=== PATIENT | male | born 1945 | race Asian ===

== ENCOUNTER 2018-12-07 10:38 | Inpatient (IN) | payer OTHER ==
--- NOTE | 2018-12-07 10:48 | PDOC ---
History of Present Illness - General Chief Complaint: Rectal Bleed Stated Complaint: Rectal Bleed Time Seen by Provider: 12/07/18 10:48 - History of Present Illness Initial Comments: 73 year old male with PMH of HTN, HLD, CAD (s/p stents), colonoscopy 7 years prior, and afib (on Xarelto) presenting with bright red blood per rectum. Stats that he had history of hemorrhoids. This all started this past evening without obvious inciting cause (including trauma, constipation, increased xarelto dosing , etc). Admits to generalized weakness but no syncope, nasuea, vomiting, fevers , abdominal pain, or other pain. 12/07/18 13:59 Past History - Past Medical History Allergies/Adverse Reactions: Allergies Allergy/AdvReac Type Severity Reaction Status Date / Time No Known Allergies Allergy Verified 12/07/18 11:31 Home Medications: Ambulatory Orders Aspirin 81 mg PO DAILY 12/07/18 Atorvastatin Ca [Lipitor] 20 mg PO DAILY 12/07/18 Carvedilol 3.125 mg PO DAILY 12/07/18 Lisinopril 10 mg PO DAILY 12/07/18 Ranitidine HCl [Zantac] 150 mg PO DAILY 12/07/18 Rivaroxaban [Xarelto] 15 mg PO DAILY 12/07/18 Review of Systems - Review of Systems Constitutional: No: Chills, Diaphoresis, Fever, Loss of Appetite HEENTM: No: Eye Pain, Blurred Vision, Tearing Respiratory: No: Cough, Orthopnea, Shortness of Breath, Wheezing Cardiac (ROS): Yes: Irregular Heart Rate, Lightheadedness. No: Chest Pain, Edema, Palpitations ABD/GI: Yes: Rectal Bleeding. No: Nausea, Vomiting : No: Burning, Dysuria, Discharge Musculoskeletal: No: Back Pain, Gout, Joint Pain Integumentary: No: Dryness, Erythema, Flushing Neurological: No: Headache, Numbness, Paresthesia Psychiatric: No: Anxiety, Depression Hematologic/Lymphatic: Yes: Easy Bleeding, Bleeding Diathesis *Physical Exam - Physical Exam General Appearance: Yes: Nourished, Appropriately Dressed, Apparent Distress, Moderate Distress HEENT: positive: EOMI, MARK, Normal ENT Inspection, Normal Voice Neck: positive: Trachea midline, Normal Thyroid, Supple. negative: Tender, Rigid Respiratory/Chest: positive: Lungs Clear, Normal Breath Sounds. negative: Chest Tender, Respiratory Distress, Accessory Muscle Use Cardiovascular: positive: Irregularly Irregular Gastrointestinal/Abdominal: positive: Normal Bowel Sounds, Flat, Soft. negative : Tender Rectal Exam: positive: other (bright red blood per rectum, small external hemorrhoid (non-engourged or bleeding)) Musculoskeletal: positive: Normal Inspection. negative: Decreased Range of Motion Extremity: positive: Normal Inspection, Normal Range of Motion. negative: Tender Integumentary: positive: Dry, Pale, Cold Neurologic: positive: Fully Oriented, Alert, Normal Mood/Affect, Normal Response , Motor Strength 06/24 ED Treatment Course - LABORATORY CBC & Chemistry Diagram: 12/07/18 13:41 12/07/18 11:15 Medical Decision Making - Medical Decision Making 73 year odl male with BRBPR (internal source) and hypotension on xarelto. Xarelto held, GI consulted, and 1 unit of PRBCs given for H&H of 10.7 with no previous labs in system. EKG non-ischemic (Afib, RVR, TWI in III but no other ST changes). Given 1 L of NS and repeat H&H one unit lower (dilutional as WBC also decreased). Given protonix 80 IV. Other labs WNL and patient will go to ICU after concersation with Dr. Lamb/ Dr. Amezquita and Dr. Vargas. 12/07/18 15:17 Discharge - Discharge Information Problems reviewed: Yes Clinical Impression/Diagnosis: BRBPR (bright red blood per rectum) Hypotension Qualifiers: Hypotension type: hypotension due to hypovolemia Qualified Code(s): I95.89 - Other hypotension; E86.1 - Hypovolemia Condition: Stable - Admission Yes - Follow up/Referral Referrals: ON STAFF,NOT [Primary Care Provider] - - Patient Discharge Instructions - Post Discharge Activity
[2018-12-07] MEDS ORDERED: PANTOPRAZOLE SODIUM 40 MG VIAL IVPUSH ONE (10:57)
[2018-12-07] MEDS ORDERED: PANTOPRAZOLE SODIUM 40 MG VIAL IVPB ONE (10:57)
[2018-12-07] MEDS ORDERED: SODIUM CHLORIDE 0.9% 500 ML INFUS.BAG IV ONE (11:14)
[2018-12-07 11:25] LABS: BASO % 0.7 % (0-2.0); EOS % 0.1 % (0-4.5); HEMATOCRIT 30.9 % (35.4-49); HEMOGLOBIN 10.7 GM/dL (11.7-16.9); LYMPH % 10.5 % (8-40); MCH 32.9 pg (25.7-33.7); MCHC 34.4 g/dl (32.0-35.9); MEAN CELL VOLUME 95.7 fl (80-96); MEAN PLT VOLUME 7.6 fl (7.5-11.1); MONO % 4.3 % (3.8-10.2); NEUT % 84.4 % (42.8-82.8); PLATELET COUNT 240 K/MM3 (134-434); RBC 3.23 M/mm3 (4.00-5.60); RDW 12.6 % (11.9-15.9); WHITE BLOOD COUNT 11.1 K/mm3 (4.0-10.0)
--- NOTE | 2018-12-07 11:32 | PDOC ---
Documentation entered by Sohail Hunt SCRIBE, acting as scribe for Robert Monson MD. Robert Monson MD: This documentation has been prepared by the Gilbert arnold Daniel, SCRIBE, under my direction and personally reviewed by me in its entirety. I confirm that the documentation accurately reflects all work, treatment, procedures, and medical decision making performed by me. Attending Attestation - Resident Resident Name: Emma Lopez - ED Attending Attestation I have performed the following: I have examined & evaluated the patient, The case was reviewed & discussed with the resident, I agree w/resident's findings & plan, Exceptions are as noted - HPI HPI: 12/07/18 11:05 The patient is a 73 year old male with a past medical history of afib (xarelto, last dose last night), CAD/stents, HTN, and HLD here today for evaluation of rectal bleeding. The patient reports that last night around 7 PM he had an episode of diarrhea and noticed bright red blood all around the toilet. He states that he has had 10 episodes of bloody diarrhea since. Denies abdominal pain. Denies N/V. Denies h/o GI bleed. Had colonoscopy 7 years ago that was normal. Patient denies headache, lightheadedness. Denies fever, chills. Denies chest pain, shortness of breath. Denies nausea, vomiting, abdominal pain. - Physicial Exam PE: 12/07/18 11:26 "GENERAL: Awake, alert, and fully oriented, in no acute distress. HEAD: No signs of trauma EYES: PERRLA, EOMI, sclera anicteric, conjunctiva clear ENT: Auricles normal inspection, hearing grossly normal, nares patent, oropharynx clear without exudates. Moist mucosa NECK: Nontender, no stepoffs, Normal ROM, supple, no lymphadenopathy, JVD, or masses LUNGS: Breath sounds equal, clear to auscultation bilaterally. No wheezes, and no crackles HEART: Regular rate and rhythm, normal S1 and S2, no murmurs, rubs or gallops ABDOMEN: Soft, nontender, normoactive bowel sounds. No guarding, no rebound. No masses EXTREMITIES: Normal range of motion, no edema. No clubbing or cyanosis. No cords, erythema, or tenderness NEUROLOGICAL: Cranial nerves II through XII intact. 5/5 strength and sensation in all extremities, Normal speech, normal gait, normal cerebellar function SKIN: Warm, Dry, normal turgor, no rashes or lesions noted. RECTAL: + Benigno blood - Critical Care Time Total Critical Care Time: 60 Critical Care Statement: The care of this patient involved high complexity decision making to prevent further life threatening deterioration of the patient 's condition and/or to evaluate & treat vital organ system(s) failure or risk of failure. - Medical Decision Making 12/07/18 11:27 73 M with multiple episodes of BRBPR on xarelto. Pt hypotensive upon arival to ED. Benigno blood in rectum. - Labs, coags, T&S - IVF - Transfuse PRN - GI consult 12/07/18 11:54 Pt now in afib with RVR Given 1L NS, still hypotensive, tachycardic Will transfuse 1u PRBC
[2018-12-07 11:41] LABS: INR 2.44 (0.83-1.09); PROTHROMBIN TIME (PATIENT) 29.1 SEC (9.7-13.0)
[2018-12-07 12:04] LABS: ALK PHOS 57 U/L (45-117); AMYLASE 52 U/L (25-115); ANION GAP 9 MMOL/L (8-16); BILIRUBIN,TOTAL 0.6 mg/dL (0.2-1); BLOOD UREA NITROGEN 27.4 mg/dL (7-18); CALCIUM 8.3 mg/dL (8.5-10.1); CHLORIDE 105 mmol/L (98-107); CO2 24 mmol/L (21-32); CREATININE 0.9 mg/dL (0.55-1.3); GLUCOSE,RANDOM 154 mg/dL (74-106); LIPASE 95 U/L (73-393); SGOT/AST 13 U/L (15-37); SGPT/ALT 20 U/L (13-61); SODIUM 138 mmol/L (136-145); TOT PROT 5.8 g/dl (6.4-8.2)
[2018-12-07 14:07] LABS: BASO % 0.3 % (0-2.0); EOS % 0.1 % (0-4.5); HEMATOCRIT 29.4 % (35.4-49); LYMPH % 9.4 % (8-40); MCH 32.9 pg (25.7-33.7); MEAN CELL VOLUME 96.8 fl (80-96); MEAN PLT VOLUME 7.7 fl (7.5-11.1); MONO % 3.4 % (3.8-10.2); NEUT % 86.8 % (42.8-82.8); PLATELET COUNT 229 K/MM3 (134-434); RBC 3.04 M/mm3 (4.00-5.60); RDW 12.8 % (11.9-15.9); WHITE BLOOD COUNT 10.1 K/mm3 (4.0-10.0)
--- NOTE | 2018-12-07 15:20 | CON.GI ---
Consult Consult Specialty:: GI Referred by:: Hospitalist Service Reason for Consultation:: Rectal bleeding - History of Present Illness Chief Complaint: Rectal bleeding History of Present Illness: 73M admitted through [facility] ER for evaluation of rectal bleeding. States that he was in his USOH up until yesterday evening. He returned from Dinner and at around 8pm, had a large blood bowel movement. he had three other bright red bloody BM's until about 1am. this was followed by more rectal bleeding between 5am-8am prompting him to call 911 and his ER visit this morning. There was associated lightheadedness. In the ER triage vitals revealed pulse of 76 with BP of 83/71 (patient states that his systolic BP usually runs around 110). Hgb was 10.7 at 11:15 and 10 2 hours later. He denies nausea, vomiting, vomiting of blood. He denies associated abdominal pain or passage of blood clots. He alludes to having had 3-4 colonoscopies in the past, the last being about 7 years ago. He does not recall who performed it but does not recall of being told of any abnormalities. He denies GI bleed in the past or recent change in bowel habits. He denies alcohol use or history of liver disease. He is maintained on Xarelto for A. Fib (last taken last night) and ASA 81mg once daily given his history of CAD with UT in the past. INR was 2.44 on admission. In the ED he was given IV fluids. At my time of evaluation about an hour ago his 1st unit of PRBC was starting. There is no family history of colorectal cancer. 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 Place of : Other ([place]) History of Recent Travel: No Home Medications - Allergies Allergies/Adverse Reactions: Allergies Allergy/AdvReac Type Severity Reaction Status Date / Time No Known Allergies Allergy Verified 12/07/18 11:31 - Home Medications Home Medications: Ambulatory Orders Aspirin 81 mg PO DAILY 12/07/18 Atorvastatin Ca [Lipitor] 20 mg PO DAILY 12/07/18 Carvedilol 3.125 mg PO DAILY 12/07/18 Lisinopril 10 mg PO DAILY 12/07/18 Ranitidine HCl [Zantac] 150 mg PO DAILY 12/07/18 Rivaroxaban [Xarelto] 15 mg PO DAILY 12/07/18 Family Medical History Other Family History: Mother: : 86 "natural causes". Father: : 69: UT. 1 Brother: : Lung Ca. 1 Brother: : stomach cancer. 1 brother: : lymphoma. 1 sister: healthy. No children. No family history of colon cancer Review of Systems - Review of Systems Constitutional: denies: Chills Cardiovascular: denies: Chest Pain Respiratory: denies: SOB Gastrointestinal: reports: Rectal Bleeding. denies: Abdominal Pain, Constipation, Diarrhea, Melena, Nausea, Vomiting, Vomiting Blood Physical Exam-GI Vital Signs: Vital Signs Temperature 97.3 F L 12/07/18 13:30 Pulse Rate 96 H 12/07/18 13:30 Respiratory Rate 16 H 12/07/18 13:30 Blood Pressure 100/83 12/07/18 13:30 O2 Sat by Pulse Oximetry (%) 100 12/07/18 13:30 Constitutional: Yes: Calm Eyes: No: Sclera Icterus Cardiovascular: Yes: Regular Rate and Rhythm Respiratory: Yes: CTA Bilaterally Gastrointestinal Inspection: No: Distention, Scars ...Auscultate: Yes: Normoactive Bowel Sounds, Hyperactive Bowel Sounds ...Palpate: Yes: Soft. No: Hepatomegaly, Splenomegaly, Tenderness ...Rectal Exam: Yes: Other (small amunt of dark blood on tip of glove, no masses ) Edema: No (No LE edema) Neurological: Yes: Alert Labs: CBC, BMP 12/07/18 13:41 12/07/18 11:15 INR, PTT INR 2.44 (0.83-1.09) H 12/07/18 11:15 Hepatic Panel Total Bilirubin 0.6 mg/dL (0.2-1) 12/07/18 11:15 AST 13 U/L (15-37) L 12/07/18 11:15 ALT 20 U/L (13-61) 12/07/18 11:15 Alkaline Phosphatase 57 U/L (45-117) 12/07/18 11:15 Albumin 3.0 g/dl (3.4-5.0) L 12/07/18 11:15 Problem List - Problems (1) Rectal bleed Assessment/Plan: Suspected LGIB in the setting of antiplatelt and NOAC therapy. Would suspect it to most likely be diverticular in nature Currently receiving blood as part of resucitative efforts. Mr. Voss explains that his baseline SBP in 110 Keep NPO except meds Hold ASA/Xarelto Protonix 40mg IVPB BID for now Needs coagulopathy corrected ICU admission Keep Hgb around 8 given cardiac history Cardiology consultation Hematology consultation. If continued heavy bleeding may need reversal agent for xarelto and having input regarding this would be prudent If continued heavy bleeding, CTA to help localize bleeding source. Once optimized and xarelto effect has worn off upper endoscopy could be performed to exclude brisk upper bleed along with colonoscopy. Timing of procedures will be based on his clinicaly course and time it takes to optimize. Discussed plan with Mr. Voss and ER resident Problems reviewed: Yes Code(s): K62.5 - HEMORRHAGE OF ANUS AND RECTUM
[2018-12-07] MEDS ORDERED: PHYTONADIONE 10 MG/1 ML AMP IM ONE (16:19)
[2018-12-07] MEDS ORDERED: PHYTONADIONE 10 MG/1 ML AMP ONE (16:27)
--- NOTE | 2018-12-07 16:28 | CONSULT ---
Consultation: REQUESTING PROVIDER: CONSULT REQUEST: We have been asked to medically evaluate this patient for ICU. HISTORY OF PRESENT ILLNESS: 73 yo M PMH of Afib (on Xarelto), CAD (s/p stent), HTN, HLD presented to the ED with hematochezia and hypotension. Pt states that he had over 10 episodes of bloody diarrhea. He describes the diarrhea as being massive and very fresh red blood. Pt states that these symptoms began last night. He states that he had duck liver from a restaurant last night with his ( who is asymptomatic). He states that this has never happened to him in the past. pt states that he is not having any abdominal pain or discomfort, he denies n/v. he states that he normally has solid BM daily. He states that earlier yesterday he had an unusual sensation in his abdomen and usually takes a supplement which he forgot to take yesterday. Pt last EGD was 1.5 y ago and states that he had dysplasia of his stomach. last colonoscopy was 7 years ago and was wnl. His Screen Writer is Dr. Cotton from [facility]. REVIEW OF SYSTEMS: CONSTITUTIONAL: Positive:Fever, generalized weakness Absent: chills, diaphoresis, malaise, loss of appetite, weight change HEENT: Absent: rhinorrhea, nasal congestion, throat pain, throat swelling, difficulty swallowing, mouth swelling, ear pain, eye pain, visual changes CARDIOVASCULAR: Present: irregular heart rate, lightheadedness Absent: chest pain, syncope, palpitations, peripheral edema RESPIRATORY: Absent: cough, shortness of breath, dyspnea with exertion, orthopnea, wheezing, stridor, hemoptysis GASTROINTESTINAL: Present: diarrhea, melena Absent: abdominal pain, abdominal distension, nausea, vomiting, constipation, hematochezia GENITOURINARY: Absent: dysuria, frequency, urgency, hesitancy, hematuria, flank pain, genital pain MUSCULOSKELETAL: Absent: myalgia, arthralgia, joint swelling, back pain, neck pain SKIN: Absent: rash, itching, pallor HEMATOLOGIC/IMMUNOLOGIC: Absent: easy bleeding, easy bruising, lymphadenopathy, frequent infections ENDOCRINE: Absent: unexplained weight gain, unexplained weight loss, heat intolerance, cold intolerance NEUROLOGIC: Present: weakness, dizziness Absent: headache, paresthesias, unsteady gait, seizure, mental status changes, bladder or bowel incontinence PSYCHIATRIC: Absent: anxiety, depression, suicidal or homicidal ideation, hallucinations. PHYSICAL EXAMINATION Vital Signs - 24 hr 12/07/18 12/07/18 12/07/18 11:24 12:37 12:51 Temperature 98.5 F Pulse Rate 76 Pulse Rate [ 75 94 H Left] Respiratory 17 16 17 Rate Blood Pressure 83/71 L Blood Pressure 93/46 L 90/68 [Arm] Blood Pressure [Left Arm] O2 Sat by Pulse 100 100 Oximetry (%) 12/07/18 12/07/18 13:47 14:05 Temperature 97.3 F L Pulse Rate Pulse Rate [ 96 H 96 H Left] Respiratory 20 209 H Rate Blood Pressure Blood Pressure [Arm] Blood Pressure 85/66 L 100/83 [Left Arm] O2 Sat by Pulse Oximetry (%) GENERAL: Awake, alert, and fully oriented, in no acute distress. HEAD: Normal with no signs of trauma. EYES: Pupils equal, round and reactive to light, extraocular movements intact EARS, NOSE, THROAT:oropharynx clear without exudates. Moist mucous membranes. LUNGS: Breath sounds equal, clear to auscultation bilaterally.No accessory muscle use. HEART: Regular rate and rhythm, normal S1 and S2 ABDOMEN: Soft, nontender, not distended, normoactive bowel sounds, no guarding, no rebound MUSCULOSKELETAL: Normal range of motion at all joints. No bony deformities or tenderness. No CVA tenderness. UPPER EXTREMITIES: 2+ pulses, warm, well-perfused. No cyanosis. No clubbing. Cap refill <2 seconds. No peripheral edema. LOWER EXTREMITIES: 2+ pulses, warm, well-perfused. No calf tenderness. No peripheral edema. SKIN: Warm, dry, normal turgor, no rashes or lesions noted. Rectal: Bright red blood on glove, no internal hemorrhoids felt, sphincter tone normal, small skin tag on R side Laboratory Last Values WBC 10.1 K/mm3 (4.0-10.0) H 12/07/18 13:41 RBC 3.04 M/mm3 (4.00-5.60) L 12/07/18 13:41 Hgb 10.0 GM/dL (11.7-16.9) L 12/07/18 13:41 Hct 29.4 % (35.4-49) L 12/07/18 13:41 MCV 96.8 fl (80-96) H 12/07/18 13:41 MCH 32.9 pg (25.7-33.7) 12/07/18 13:41 MCHC 34.0 g/dl (32.0-35.9) 12/07/18 13:41 RDW 12.8 % (11.9-15.9) 12/07/18 13:41 Plt Count 229 K/MM3 (134-434) 12/07/18 13:41 MPV 7.7 fl (7.5-11.1) 12/07/18 13:41 Absolute Neuts (auto) 8.8 K/mm3 (1.5-8.0) H 12/07/18 13:41 Neutrophils % 86.8 % (42.8-82.8) H 12/07/18 13:41 Lymphocytes % 9.4 % (8-40) 12/07/18 13:41 Monocytes % 3.4 % (3.8-10.2) L 12/07/18 13:41 Eosinophils % 0.1 % (0-4.5) 12/07/18 13:41 Basophils % 0.3 % (0-2.0) 12/07/18 13:41 Nucleated RBC % 0 % (0-0) 12/07/18 13:41 PT with INR 29.10 SEC (9.7-13.0) H 12/07/18 11:15 INR 2.44 (0.83-1.09) H 12/07/18 11:15 Sodium 138 mmol/L (136-145) 12/07/18 11:15 Potassium 5.0 mmol/L (3.5-5.1) 12/07/18 11:15 Chloride 105 mmol/L (98-107) 12/07/18 11:15 Carbon Dioxide 24 mmol/L (21-32) 12/07/18 11:15 Anion Gap 9 MMOL/L (8-16) 12/07/18 11:15 BUN 27.4 mg/dL (7-18) H 12/07/18 11:15 Creatinine 0.9 mg/dL (0.55-1.3) 12/07/18 11:15 Est GFR (CKD-EPI)AfAm 98.55 12/07/18 11:15 Est GFR (CKD-EPI)NonAf 85.03 12/07/18 11:15 Random Glucose 154 mg/dL (74-106) H 12/07/18 11:15 Lactic Acid 3.0 mmol/L (0.4-2.0) H* 12/07/18 11:15 Calcium 8.3 mg/dL (8.5-10.1) L 12/07/18 11:15 Total Bilirubin 0.6 mg/dL (0.2-1) 12/07/18 11:15 AST 13 U/L (15-37) L 12/07/18 11:15 ALT 20 U/L (13-61) 12/07/18 11:15 Alkaline Phosphatase 57 U/L (45-117) 12/07/18 11:15 Creatine Kinase 50 U/L (26-308) 12/07/18 11:15 Troponin I < 0.02 ng/ml (0.00-0.05) 12/07/18 11:15 Total Protein 5.8 g/dl (6.4-8.2) L 12/07/18 11:15 Albumin 3.0 g/dl (3.4-5.0) L 12/07/18 11:15 Total Amylase 52 U/L (25-115) 12/07/18 11:15 Lipase 95 U/L (73-393) 12/07/18 11:15 Blood Type B POSITIVE 12/07/18 12:52 Antibody Screen Negative 12/07/18 11:45 Crossmatch See Detail 12/07/18 11:45 Current Medications Sodium Chloride (Normal Saline -) 1,000 mls @ 125 mls/hr IV ASDIR SARAY Pantoprazole Sodium (Protonix Iv) 40 mg IVPB BID SARAY Phytonadione (Aqua Mephyton Injection -) 5 mg IM ONCE ONE Stop: 12/07/18 16:20 ASSESSMENT/PLAN: 73 yo M PMH of Afib, CAD, HTN, HLD admitted to ICU for Acute GI bleed. Neuro: -Alert, Orientedx3 Cardio: Afib, CAD, HTN, HLD -hold xarelto, asa in setting of Acute GI bleed -Vitamin K -rpt CBC q4 -maintain Hgb>8 -Cardio recs appreciated -Hypotensive -NS bolus -Hgb responding well post transfusion GI: Acute blood loss anemia 2/2 acute GI bleed -continue to monitor -protonix IVPB BID -s/p 1 U pRBC -GI recs appreciated -EGD/colonoscopy once xarelto reversed -if bleeding continues, will consider CTA F/E/N -IV NS @ 125mls/ hr -monitor lytes -NPO DVT ppx: SCDs, avoid chemical ppx in setting of acute bleed. Dispo: We will continue to follow the patient. Thank you for this consultative opportunity. ATTENDING PHYSICIAN STATEMENT I saw and evaluated the patient. I reviewed the resident's note and discussed the case with the resident. I agree with the resident's findings and plan as documented. SUBJECTIVE: OBJECTIVE: ASSESSMENT AND PLAN:
[2018-12-07] MEDS ORDERED: SODIUM CHLORIDE 1,000 ML IV SCH ×2 (16:30→18:03)
[2018-12-07 17:07] LABS: HEMATOCRIT 32.4 % (35.4-49); HEMOGLOBIN 11.1 GM/dL (11.7-16.9); MCH 32.2 pg (25.7-33.7); MCHC 34.1 g/dl (32.0-35.9); MEAN CELL VOLUME 94.3 fl (80-96); MEAN PLT VOLUME 7.6 fl (7.5-11.1); PLATELET COUNT 216 K/MM3 (134-434); RBC 3.44 M/mm3 (4.00-5.60); RDW 13.6 % (11.9-15.9); WHITE BLOOD COUNT 8.9 K/mm3 (4.0-10.0)
[2018-12-07] MEDS ORDERED: SODIUM CHLORIDE 1,000 ML IV STA (18:02)
--- NOTE | 2018-12-07 18:14 | PN ---
Teaching Attending Note Name of Resident: Malena Zurita ATTENDING PHYSICIAN STATEMENT I saw and evaluated the patient. I reviewed the resident's note and discussed the case with the resident. I agree with the resident's findings and plan as documented. SUBJECTIVE: CC: rectal bleed HPI: 73 y/o man with h/o CAD, s/p CABG, HTN, HLP, A fib on xarelto, who presented with rectal bleed. last evening and through this am he had 7 bloody BMs. with no abd pain or rectal pain. blood is accompanied with small amount of stool. denies any prevous GI bleed. last colo was 7 years which was nl. takes xarelto and aspirin and compliant with that. denies any SOB or CP, but has dizziness with standing up. he had 3 bloody BMs in ER. received one unit of RBC in ER he was accepted to ICU OBJECTIVE: BP 81/55 . HR 85 NAD, pale, awake, oriented and cooperative . dry MM CV: RRR, HR in 80s Lungs: CTAB Abd: soft, NT, ND, NL BS. Ext: No edema or erythema. Neuro : EOMI, round pupils, no facial droop. strength 5/5 in upper and lower extremities proximally and distally rectal per resident: skin tag, no internal hemorrhoids, no masses ASSESSMENT AND PLAN: 73 y/o man with h/o CAD, s/p CABG, HTN, HLP, A fib on xarelto, who presented with rectal bleed 1- Painless Rectal bleed : likely lower GI bleed from diverticular source or AVM. internal hemorrhoids is less likely. can't r/o upper GI bleed completely. ischemia is unlikely due to absence of pain, despite having A fib ( compliant with his xarelto) patient is hypotensive and has dizziness. Received 1 L of IVF and 1 unit of blood . he already received Iv Vit K per ICU team by the time of my evaluation - will bolus 1 L of NS now - Hb improved to 11.1 after 1 unit. - follow H&H q 4 hrs - hold xarelto and asa. patient understands that he has a risk of stroke withholding these agents. he also understands that Vit K might cause the same. - Spoke to pharmacist to check availability of Xarelto reversal agents. We don' t have AndexXa, Kcentra , or octaplex. Pharmacist will kindly try to call other hospital to see if they have it, in case we need them. - GI eval done. - Bleeding seems to have stopped, but if he re-bleeds tonight, then will get CTA . - EGD timing per GI - will ask heme to help in case we need to use reversal agents 2- acute blood loss anemia. as above 3- h/o HTN: now hypotensive . hold all meds dispo : ICU . Critical Care Total Critical Care Time (in minutes): 50 Critical Care Statement: The care of this patient involved high complexity decision making to prevent further life threatening deterioration of the patient 's condition and/or to evaluate & treat vital organ system(s) failure or risk of failure.
[2018-12-07] MEDS: PANTOPRAZOLE SODIUM 40 MG VIAL IVPB SCH (21:02)
--- NOTE | 2018-12-07 21:28 | CONSULT ---
Consult - text type - Consultation Consultation Note: 73M admitted through [facility] ER for evaluation of rectal bleeding. States that he was in his USOH up until yesterday evening. He returned from Dinner and at around 8pm, had a large blood bowel movement. he had three other bright red bloody BM's until about 1am. this was followed by more rectal bleeding between 5am-8am prompting him to call 911 and his ER visit this morning. There was associated lightheadedness. In the ER triage vitals revealed pulse of 76 with BP of 83/71 (patient states that his systolic BP usually runs around 110). Hgb was 10.7 at 11:15 and 10 2 hours later. He denies nausea, vomiting, vomiting of blood. He denies associated abdominal pain or passage of blood clots. He alludes to having had 3-4 colonoscopies in the past, the last being about 7 years ago. He is maintained on Xarelto for A. Fib (last taken last night) and ASA 81mg once daily given his history of CAD with DC in the past. INR was 2.44 on admission. In the ED he was given IV fluids. There is no family history of colorectal cancer. Last dose of Xeralto and aspirin was on 12/06 at 8 pm. 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 Father: : 69: DC. 1 Brother: : Lung Ca. 1 Brother: : stomach cancer. 1 brother: : lymphoma. 1 sister: healthy. No children. No family history of colon cancer Review of Systems - Review of Systems Constitutional: denies: Chills Cardiovascular: denies: Chest Pain Respiratory: denies: SOB Gastrointestinal: reports: Rectal Bleeding. denies: Abdominal Pain, Constipation, Diarrhea, Melena, Nausea, Vomiting, Vomiting Blood Physical Exam-GI Vital Signs: Vital Signs Temperature 97.3 F L 12/07/18 13:30 Pulse Rate 96 H 12/07/18 13:30 Respiratory Rate 16 H 12/07/18 13:30 Blood Pressure 100/83 12/07/18 13:30 O2 Sat by Pulse Oximetry (%) 100 12/07/18 13:30 Constitutional: Yes: Calm Eyes: No: Sclera Icterus Cardiovascular: Yes: Regular Rate and Rhythm Respiratory: Yes: CTA Bilaterally Gastrointestinal Inspection: No: Distention, Scars ...Auscultate: Yes: Normoactive Bowel Sounds, Hyperactive Bowel Sounds ...Palpate: Yes: Soft. No: Hepatomegaly, Splenomegaly, Tenderness Edema: No (No LE edema) Neurological: Yes: Alert Labs: CBC, BMP 12/07/18 13:41 12/07/18 11:15 INR, PTT INR 2.44 (0.83-1.09) H 12/07/18 11:15 Hepatic Panel Total Bilirubin 0.6 mg/dL (0.2-1) 12/07/18 11:15 AST 13 U/L (15-37) L 12/07/18 11:15 ALT 20 U/L (13-61) 12/07/18 11:15 Alkaline Phosphatase 57 U/L (45-117) 12/07/18 11:15 Albumin 3.0 g/dl (3.4-5.0) L 12/07/18 11:15 Problem List - Problems (1) Rectal bleed Assessment/Plan: Suspected LGIB in the setting of antiplatelt and NOAC therapy. Would suspect it to most likely be diverticular in nature Protonix 40mg IVPB BID for now Last dose of Xeralto and ASA --12/06 at 8pm Half life of Xeralto --11-17hrs. Based on patients Cr clearecne of >50ml/min expect the anticoagulant effect to be diminishing Given the aspirin dose --will transfuse monodonor platelets Transfuse PRBCs as necessary Supportive care per icu team CTA/Surgery consult per icu/gi team Recheck PT/PTT/fibrinogn/CBC Discussed in great detail with icu team
[2018-12-07] MEDS: CHLORHEXIDINE GLUCONATE 4% CLEANSER FOR DECOLONIZATION TP SCH (21:36)
--- NOTE | 2018-12-07 21:49 | HP ---
CHIEF COMPLAINT:Bright red blood per rectum PCP: none HISTORY OF PRESENT ILLNESS: 73 y/o M with PMH of Afib on Xarelto (last dose increased was 3 yrs ago), CAD s/ p one stent in the LAD 21 years ago, HTN, HLD,who presented to the ED because of rectal bleed. Pt reports that last night around 7 pm while he was dining at a restaurant, he started to have a feeling of discomfort in the abdomen and went to the bathroom as home was 45 min away. Per patient, he had an episode of diarrhea then afterwards he notices that the bathroom bowl was filled with blood. Since then, the patient had 11 similar episodes with same consistency and quantity. However, he never experienced N/V, fevers, chills, abdominal pain , SOB or lightheadedness (lightheadness only in the ED). Pt denied NSAID use or inappropriate use of his anticoagulation medication. Pt denies any prior history of bleeding; no gum bleeding after dental procedures. Recent Travel:none PAST MEDICAL HISTORY: as noted above PAST SURGICAL HISTORY: CABG Family HISTORY:No hx of bleeding disorder. Brother had lung, stomach cancer and lymphoma Social History: Smoking: former smoker. 21 yrs ago. 1PPD for 30 yrs. Alcohol:denies Drugs: denies Allergies No Known Allergies Allergy (Verified 12/07/18 11:31) HOME MEDICATIONS: Home Medications Medication Instructions Recorded Aspirin 81 mg PO DAILY 12/07/18 Atorvastatin Ca [Lipitor] 20 mg PO DAILY 12/07/18 Carvedilol 3.125 mg PO DAILY 12/07/18 Lisinopril 10 mg PO DAILY 12/07/18 Ranitidine HCl [Zantac] 150 mg PO DAILY 12/07/18 Rivaroxaban [Xarelto] 15 mg PO DAILY 12/07/18 REVIEW OF SYSTEMS CONSTITUTIONAL: Absent: fever, chills, diaphoresis, generalized weakness, malaise, loss of appetite, weight change HEENT: Absent: rhinorrhea, nasal congestion, throat pain, throat swelling, difficulty swallowing, mouth swelling, ear pain, eye pain, visual changes CARDIOVASCULAR: Absent: chest pain, syncope, palpitations, irregular heart rate, lightheadedness , peripheral edema RESPIRATORY: Absent: cough, shortness of breath, dyspnea with exertion, orthopnea, wheezing, stridor, hemoptysis GASTROINTESTINAL:hematochezia Absent: abdominal pain, abdominal distension, nausea, vomiting, diarrhea, constipation, melena, GENITOURINARY: Absent: dysuria, frequency, urgency, hesitancy, hematuria, flank pain, genital pain MUSCULOSKELETAL: Absent: myalgia, arthralgia, joint swelling, back pain, neck pain SKIN: Absent: rash, itching, pallor HEMATOLOGIC/IMMUNOLOGIC: Absent: easy bleeding, easy bruising, lymphadenopathy, frequent infections ENDOCRINE: Absent: unexplained weight gain, unexplained weight loss, heat intolerance, cold intolerance NEUROLOGIC: Absent: headache, focal weakness or paresthesias, dizziness, unsteady gait, seizure, mental status changes, bladder or bowel incontinence PSYCHIATRIC: Absent: anxiety, depression, suicidal or homicidal ideation, hallucinations. PHYSICAL EXAMINATION Vital Signs - 24 hr 12/07/18 12/07/18 12/07/18 11:24 12:37 12:51 Temperature 98.5 F Pulse Rate 76 Pulse Rate [ 75 94 H Left] Respiratory 17 16 17 Rate Blood Pressure 83/71 L Blood Pressure 93/46 L 90/68 [Arm] Blood Pressure [Left Arm] O2 Sat by Pulse 100 100 Oximetry (%) 12/07/18 12/07/18 12/07/18 13:47 14:05 20:05 Temperature 97.3 F L Pulse Rate Pulse Rate [ 96 H 96 H Left] Respiratory 20 209 H Rate Blood Pressure Blood Pressure [Arm] Blood Pressure 85/66 L 100/83 94/67 [Left Arm] O2 Sat by Pulse Oximetry (%) 12/07/18 20:23 Temperature 97.9 F Pulse Rate 78 Pulse Rate [ Left] Respiratory 18 Rate Blood Pressure 142/109 H Blood Pressure [Arm] Blood Pressure [Left Arm] O2 Sat by Pulse 100 Oximetry (%) GENERAL: Awake, alert, and fully oriented, in no acute distress. HEAD: Normal with no signs of trauma. EYES: Pupils equal, round and reactive to light, extraocular movements intact, sclera anicteric, conjunctiva clear. No lid lag. EARS, NOSE, THROAT: oropharynx clear without exudates. Moist mucous membranes. NECK: Normal range of motion, supple without lymphadenopathy, JVD, or masses. LUNGS: Breath sounds equal, clear to auscultation bilaterally. No wheezes, and no crackles. No accessory muscle use. HEART: Regular rate and rhythm, normal S1 and S2 without murmur, rub or gallop. ABDOMEN: Soft, nontender, not distended, normoactive bowel sounds, no guarding, no rebound, no masses. No hepatomegaly or splenomegaly. MUSCULOSKELETAL: Normal range of motion at all joints. No bony deformities or tenderness. No CVA tenderness. UPPER EXTREMITIES: 2+ pulses, warm, well-perfused. No cyanosis. No clubbing. No peripheral edema. LOWER EXTREMITIES: 2+ pulses, warm, well-perfused. No calf tenderness. No peripheral edema. PSYCHIATRIC: Cooperative. Good eye contact. Appropriate mood and affect. SKIN: Warm, dry, normal turgor, no rashes or lesions noted, normal capillary refill. Rectal: skin tag, no internal or external hemorrhoids, blood on finger from rectal exam Laboratory Results - last 24 hr 12/07/18 12/07/18 12/07/18 11:15 11:15 11:15 WBC 11.1 H RBC 3.23 L Hgb 10.7 L Hct 30.9 L MCV 95.7 MCH 32.9 MCHC 34.4 RDW 12.6 Plt Count 240 MPV 7.6 Absolute Neuts (auto) 9.3 H Neutrophils % 84.4 H Lymphocytes % 10.5 Monocytes % 4.3 Eosinophils % 0.1 Basophils % 0.7 Nucleated RBC % 0 PT with INR 29.10 H INR 2.44 H PTT (Actin FS) Sodium 138 Potassium 5.0 Chloride 105 Carbon Dioxide 24 Anion Gap 9 BUN 27.4 H Creatinine 0.9 Est GFR (CKD-EPI)AfAm 98.55 Est GFR (CKD-EPI)NonAf 85.03 Random Glucose 154 H Lactic Acid Calcium 8.3 L Total Bilirubin 0.6 AST 13 L ALT 20 Alkaline Phosphatase 57 Creatine Kinase 50 Troponin I < 0.02 Total Protein 5.8 L Albumin 3.0 L Total Amylase 52 Lipase 95 Blood Type Antibody Screen Crossmatch 12/07/18 12/07/18 12/07/18 11:15 11:15 11:45 WBC RBC Hgb Hct MCV MCH MCHC RDW Plt Count MPV Absolute Neuts (auto) Neutrophils % Lymphocytes % Monocytes % Eosinophils % Basophils % Nucleated RBC % PT with INR INR PTT (Actin FS) Sodium Potassium Chloride Carbon Dioxide Anion Gap BUN Creatinine Est GFR (CKD-EPI)AfAm Est GFR (CKD-EPI)NonAf Random Glucose Lactic Acid 3.0 H* Calcium Total Bilirubin AST ALT Alkaline Phosphatase Creatine Kinase Troponin I Total Protein Albumin Total Amylase Lipase Blood Type Cancelled B POSITIVE Antibody Screen Cancelled Negative Crossmatch See Detail 12/07/18 12/07/18 12/07/18 12:52 13:41 16:55 WBC 10.1 H 8.9 RBC 3.04 L 3.44 L Hgb 10.0 L 11.1 L Hct 29.4 L 32.4 L MCV 96.8 H 94.3 MCH 32.9 32.2 MCHC 34.0 34.1 RDW 12.8 13.6 Plt Count 229 216 MPV 7.7 7.6 Absolute Neuts (auto) 8.8 H Neutrophils % 86.8 H Lymphocytes % 9.4 Monocytes % 3.4 L Eosinophils % 0.1 Basophils % 0.3 Nucleated RBC % 0 PT with INR INR PTT (Actin FS) Sodium Potassium Chloride Carbon Dioxide Anion Gap BUN Creatinine Est GFR (CKD-EPI)AfAm Est GFR (CKD-EPI)NonAf Random Glucose Lactic Acid Calcium Total Bilirubin AST ALT Alkaline Phosphatase Creatine Kinase Troponin I Total Protein Albumin Total Amylase Lipase Blood Type B POSITIVE Antibody Screen Crossmatch 12/07/18 12/07/18 16:55 19:00 WBC RBC Hgb Hct MCV MCH MCHC RDW Plt Count MPV Absolute Neuts (auto) Neutrophils % Lymphocytes % Monocytes % Eosinophils % Basophils % Nucleated RBC % PT with INR INR PTT (Actin FS) 37.1 H Sodium Potassium Chloride Carbon Dioxide Anion Gap BUN Creatinine Est GFR (CKD-EPI)AfAm Est GFR (CKD-EPI)NonAf Random Glucose Lactic Acid 0.9 Calcium Total Bilirubin AST ALT Alkaline Phosphatase Creatine Kinase Troponin I Total Protein Albumin Total Amylase Lipase Blood Type Antibody Screen Crossmatch ASSESSMENT/PLAN: 73 y/o M with PMH of Afib on Xarelto (last dose increased was 3 yrs ago), CAD s/ p one stent in the LAD 21 years ago, HTN, HLD admitted BRBPR. ICU adimission BRBPR. Painless. most likely Diverticular in origin/ AVM/Hemorrhoids (internal) hypotension on admission resolved after receiving 1 L of IVF and 1 unit of blood, Vit K will bolus 1 L of NS now Hb improved to 11.1 after 1 unit CBC q 4 hrs hold xarelto and asa Keep NPO except meds DR Digiorno consulted :Protonix 40mg IVPB BID for now,Needs coagulopathy corrected.If continued heavy bleeding, CTA to help localize bleeding source. Once optimized and xarelto effect has worn off upper endoscopy could be performed to exclude brisk upper bleed along with colonoscopy. Timing of procedures will be based on his clinical course. Hgb around should maintain around 8. low threshold for transfusion. Cardiology consultation Hematology consultation. HTN now hypotensive hold BP meds DVT SCDs holding ACs 2/2 bleeding Visit type - Emergency Visit Emergency Visit: Yes ED Registration Date: 12/07/18 Care time: The patient presented to the Emergency Department on the above date and was hospitalized for further evaluation of their emergent condition. - New Patient This patient is new to me today: Yes Date on this admission: 12/07/18 - Critical Care Critical Care patient: Yes Total Critical Care Time (in minutes): 35 Critical Care Statement: The care of this patient involved high complexity decision making to prevent further life threatening deterioration of the patient 's condition and/or to evaluate & treat vital organ system(s) failure or risk of failure. ATTENDING PHYSICIAN STATEMENT I saw and evaluated the patient. I reviewed the resident's note and discussed the case with the resident. I agree with the resident's findings and plan as documented. SUBJECTIVE: OBJECTIVE: ASSESSMENT AND PLAN:
[2018-12-07 22:00] LABS: HEMATOCRIT 29.2 % (35.4-49); HEMOGLOBIN 9.8 GM/dL (11.7-16.9); MCH 31.7 pg (25.7-33.7); MCHC 33.7 g/dl (32.0-35.9); MEAN CELL VOLUME 94.1 fl (80-96); MEAN PLT VOLUME 7.6 fl (7.5-11.1); PLATELET COUNT 197 K/MM3 (134-434); RBC 3.11 M/mm3 (4.00-5.60); RDW 13.3 % (11.9-15.9); WHITE BLOOD COUNT 7.9 K/mm3 (4.0-10.0)
[2018-12-07] MEDS ORDERED: MUPIROCIN 2% TOPICAL OINTMENT FOR DECOLONIZATION NS SCH (22:00)
[2018-12-07] MEDS ORDERED: LACTATED RINGERS SOLUTION 1,000 ML/1,000 ML INFUS.BAG IV SCH ×2 (22:15→23:15)
[2018-12-07 22:58] LABS: INR 1.47 (0.83-1.09); PROTHROMBIN TIME (PATIENT) 17.4 SEC (9.7-13.0)
[2018-12-07 23:00] LABS: ACTIVATED PTT 36.5 SECONDS (25.2-36.5)
[2018-12-08 03:27] LABS: BASO % 0.3 % (0-2.0); EOS % 0.5 % (0-4.5); HEMATOCRIT 29.6 % (35.4-49); HEMOGLOBIN 10.3 GM/dL (11.7-16.9); LYMPH % 16.3 % (8-40); MCH 31.7 pg (25.7-33.7); MCHC 34.8 g/dl (32.0-35.9); MEAN CELL VOLUME 91.1 fl (80-96); MEAN PLT VOLUME 7.9 fl (7.5-11.1); MONO % 7.9 % (3.8-10.2); PLATELET COUNT 176 K/MM3 (134-434); RBC 3.24 M/mm3 (4.00-5.60); RDW 14.4 % (11.9-15.9); WHITE BLOOD COUNT 7.7 K/mm3 (4.0-10.0)
[2018-12-08 07:19] LABS: ALBUMIN 2.6 g/dl (3.4-5.0); BILIRUBIN,TOTAL 1.4 mg/dL (0.2-1); BLOOD UREA NITROGEN 14.9 mg/dL (7-18); CALCIUM 7.5 mg/dL (8.5-10.1); CREATININE 0.6 mg/dL (0.55-1.3); MAGNESIUM 1.7 mg/dL (1.8-2.4); PHOSPHOROUS 1.8 mg/dL (2.5-4.9); POTASSIUM 3.8 mmol/L (3.5-5.1); TOT PROT 4.7 g/dl (6.4-8.2)
[2018-12-08 07:37] LABS: INR 1.24 (0.83-1.09); PROTHROMBIN TIME (PATIENT) 14.7 SEC (9.7-13.0)
--- NOTE | 2018-12-08 08:17 | CONSULT ---
Consult Consult Specialty:: PULM/CCM Referred by:: Dr. Bekah Clark Reason for Consultation:: GIB - History of Present Illness Chief Complaint: Bloody BMs History of Present Illness: Mr. Voss is a 73 y/o man w/ HTN, HLD, Afib on Xarelto & ASA, & CAD s/p one stent in the LAD (21 yrs in the past). The pt presents to the ED O/N c/o rectal bleed. Pt reports dining at a restaurant in the evening & went to bathroom for sudden abd discomfort. A/p pt he had an episode of diarrhea then afterwards he noticed that the bathroom bowl was "filled with blood". Since that time, the patient had 11 similar episodes of same. Pt denied any: N/V, fevers, chills, abd pain, SOB or lightheadedness. Pt denies any NSAID use or inappropriate use of his anticoagulation medication. Pt denies any prior history of bleeding; no gum bleeding after dental procedures. In ED pt c/o lightheadedness. BP of 83/71 & INR was 2.44 but Hgb stable in the 10's. Pt received PRBCs X1, Plts, & vit K O /N. 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 History of Recent Travel: No Home Medications - Allergies Allergies/Adverse Reactions: Allergies Allergy/AdvReac Type Severity Reaction Status Date / Time No Known Allergies Allergy Verified 12/07/18 11:31 - Home Medications Home Medications: Ambulatory Orders Aspirin 81 mg PO DAILY 12/07/18 Atorvastatin Ca [Lipitor] 20 mg PO DAILY 12/07/18 Carvedilol 3.125 mg PO DAILY 12/07/18 Lisinopril 10 mg PO DAILY 12/07/18 Ranitidine HCl [Zantac] 150 mg PO DAILY 12/07/18 Rivaroxaban [Xarelto] 15 mg PO DAILY 12/07/18 Family Medical History Family Hx Cancer: Brother Family Hx Cardiac Disorders: Father Family Hx Coronary Artery Disease: Father Family Hx Gastrointestinal Disorder: Brother Review of Systems - Review of Systems Constitutional: reports: No Symptoms Eyes: reports: No Symptoms HENT: reports: No Symptoms Neck: reports: No Symptoms Cardiovascular: reports: No Symptoms Respiratory: reports: No Symptoms Gastrointestinal: reports: Diarrhea, Rectal Bleeding Genitourinary: reports: No Symptoms Breasts: reports: No Symptoms Reported Musculoskeletal: reports: No Symptoms Integumentary: reports: No Symptoms Neurological: reports: No Symptoms Endocrine: reports: No Symptoms Hematology/Lymphatic: reports: No Symptoms Psychiatric: reports: No Symptoms Physical Exam Vital Signs: Vital Signs Temperature 98.2 F 12/08/18 06:00 Pulse Rate 84 12/08/18 06:00 Respiratory Rate 16 12/08/18 06:00 Blood Pressure 92/53 L 12/08/18 06:00 O2 Sat by Pulse Oximetry (%) 100 12/07/18 20:23 Intake & Output 12/05/18 12/06/18 12/07/18 12/08/18 23:59 23:59 23:59 23:59 Intake Total 1000 1450 Balance 1000 1450 Weight 62.142 kg Constitutional: Yes: Well Nourished, No Distress, Calm Eyes: Yes: WNL, Conjunctiva Clear, EOM Intact HENT: Yes: WNL, Atraumatic, Normocephalic Neck: Yes: WNL, Supple, Trachea Midline Cardiovascular: Yes: WNL, Regular Rate and Rhythm Respiratory: Yes: WNL, Regular, CTA Bilaterally Gastrointestinal: Yes: WNL, Normal Bowel Sounds, Soft, Rectal Bleeding ...Rectal Exam: Yes: Deferred Renal/: Yes: WNL Breast(s): Yes: WNL Musculoskeletal: Yes: WNL Extremities: Yes: WNL Edema: Yes Edema: RUE: 3+ Peripheral Pulses WNL: Yes Integumentary: Yes: WNL Neurological: Yes: WNL, Alert, Oriented ...Motor Strength: WNL Psychiatric: Yes: WNL, Alert, Oriented Labs: CBC, BMP 12/08/18 02:55 12/08/18 06:08 INR, PTT INR 1.24 (0.83-1.09) H 12/08/18 06:08 Fibrinogen 284.0 mg/dL (238-498) 12/07/18 22:25 Imaging - Results Cat Scan: Report Reviewed (CTAP 12/07: NEGATIVE) EKG: Image Reviewed (12 LEAD 12/07: RSR @ 67 w/o ectopy, qu'ed out in V1 & V2 c/ w septal infarction but age unknown & pt has definitive Hx/o , no ST or T-wave aberration, QTc = 400ms (My Read).) Problem List - Problems (1) Rectal bleed Code(s): K62.5 - HEMORRHAGE OF ANUS AND RECTUM Assessment/Plan ASSESS: -LGIB in s/o antiplatelt and NOAC therapy. Last dose of Xeralto and ASA --> at 8pm (Half life of Xeralto --11-17hrs) -HTN -HL -CAD w/ stents on ASA -A-Fib on Xarelto PLAN: -Hold all anti-HTN meds -Hold all AC -NPO -Large bore IV X2 -PPI -Trend CBC -F/u Coags -Trend Fibrinogen -Normal Transfusion Thresholds -If pt continues to bleed to the point of instability repeat mono-donor plts -EGD -Colonoscopy -GI Consult -Consider surgical consult -CARDS (Holding AC on an A-Fib Pt) EDUARDO Vazquez-[facility] ICU PULM/CCM [id number]
[2018-12-08] MEDS ORDERED: MAGNESIUM SULF 50% (8.12 MEQ/2 ML-1 GM VIAL) IVPB ONE (08:25)
--- NOTE | 2018-12-08 10:56 | PROC ---
Procedure Note Procedure: PROCEDURE: MIDLINE INDICATION: GIB & POOR VENOUS ACCESS CONSENT: Consent was obtained from the patient himself. The patient did sign the consent. The consent was documented & placed in the patient's chart. I did evaluate the pts L basilic vein w/ US & I did appreciate the vessel to be healthy, patent, & easily accessible. The site was prepped & draped in the usual sterile fashion. STOP TIME OUT I did conduct a TIME OUT w/ the patient's Nurse at the bedside. I did anesthetize the target site w/ 2cc 1% Lido. I then entered the pts L basilic vein under US guidance w/ a 21G introducer needle & I did appreciate the flow of non-pulsatile dark venous blood. I then threaded a 50cm Nitinol straight tip Flexura guidewire through the needle into the pts L basilic vein & removed the needle. I then passed a 5.0 Fr MicroEZ Micro introducer w/ vessel dilator over the wire & into the vessel using the seldinger technique. I removed the wire & I appreciated the wire to be intact & whole. I then removed the central stylette & threaded a 5Fr dual lumen 20cm midline through the sheath into the vessel & then I broke away the sheath & advanced the Midline to the 20cm hub. I did appreciate the return of Dark Venous non-pulsatile blood in both ports. Both ports were flushed & capped in the usual sterile fashion. The line was secured inplace w/ the STAT-Lock system. I placed a Bio-disc on the site where the catheter breaches through the pts skin. I applied a sterile dressing to the entire site. EBL < 5cc. The pt tolerated the procedure well. I have no complications to report. EDUARDO Vazquez-[facility] ICU PULM/[facility] [id number]
[2018-12-08] MEDS: PANTOPRAZOLE SODIUM 40 MG VIAL IVPB SCH ×2 (11:08→21:16)
[2018-12-08] MEDS ORDERED: NAPH,MB-DB/K PH,MBDB POWDER PACKET PO ONE (11:18)
[2018-12-08] MEDS ORDERED: SODIUM CHLORIDE 1,000 ML IV SCH (11:25)
--- NOTE | 2018-12-08 11:34 | PN ---
Teaching Attending Note Name of Resident: Amanda Cadena ATTENDING PHYSICIAN STATEMENT I saw and evaluated the patient. I reviewed the resident's note and discussed the case with the resident. I agree with the resident's findings and plan as documented. SUBJECTIVE: no fever or chills. No HESTER , no abd pain, no light headedness. No SOB . had one bloody BM this am. OBJECTIVE: NAD, pale, awake, oriented and cooperative. MMM CV: RRR. Lungs: CTAB Abd: soft, NT, ND, NL BS. Ext: No edema or erythema. ASSESSMENT AND PLAN: 73 y/o man with h/o CAD, s/p CABG, HTN, HLP, A fib on xarelto, who presented with rectal bleed 1- Painless Rectal bleed : likely lower GI bleed from diverticular source or AVM. - he cont to bleed but less. Hb is stable after transfusion and BP has improved - Received plt and Vit K - It has been 40 hours after last dose of xarelto. INR 1.2 . will d/w GI the possibility of EGD/colo - cont to hold xarelto and ASA - monitor HB and VS. - NPO - decrease IVF date as BP has improved 2- Hypomagnesemia and hypophosphatemia. replete 3-Acute blood loss anemia. transfuse as needed 4- H/o HTN: monitor at this time Dispo: ICU . Critical Care Total Critical Care Time (in minutes): 30 Critical Care Statement: The care of this patient involved high complexity decision making to prevent further life threatening deterioration of the patient 's condition and/or to evaluate & treat vital organ system(s) failure or risk of failure.
[2018-12-08 12:22] LABS: HEMATOCRIT 31.1 % (35.4-49); HEMOGLOBIN 10.7 GM/dL (11.7-16.9); MCH 31.4 pg (25.7-33.7); MCHC 34.5 g/dl (32.0-35.9); MEAN PLT VOLUME 7.7 fl (7.5-11.1); PLATELET COUNT 184 K/MM3 (134-434); RBC 3.42 M/mm3 (4.00-5.60); RDW 15.3 % (11.9-15.9); WHITE BLOOD COUNT 9.1 K/mm3 (4.0-10.0)
--- NOTE | 2018-12-08 12:26 | CON.CARD ---
Cardiology Consult (text) - Consultation Consultation Note: cc: rectal bleed hpi: 73 m hx pafib, cad s/p remote mi/pci 20 yrs ago, hld, htn, here with rectal bleed. BRBPR. No cp sob palps dizzy loc pnd orthopnea le edema. Monitoring in icu now, hgb stable. pmh: per hpi psh: pci social: no tob fam: no premature cad, scd ros: per hpi; all others nl meds: Current Medications Generic Name Dose Route Start Last Admin Trade Name Rayshawn PRN Reason Stop Dose Admin Chlorhexidine Gluconate 1 applic 12/07/18 22:00 12/07/18 21:36 Hibiclens For Decolonization - TP 1 applic HS SARAY Administration Lactated Ringer's 1,000 ml in 1,000 mls @ 100 mls/hr 12/07/18 23:15 12/08/18 11:07 Lactated Ringers Solution IV 100 mls/hr ASDIR SARAY Administration Sodium Chloride 1,000 mls @ 100 mls/hr 12/08/18 11:25 Normal Saline - IV ASDIR SARAY Pantoprazole Sodium 40 mg 12/07/18 22:00 12/08/18 11:08 Protonix Iv IVPB 40 mg BID SARAY Administration Home Medications Medication Instructions Recorded Aspirin 81 mg PO DAILY 12/07/18 Atorvastatin Ca [Lipitor] 20 mg PO DAILY 12/07/18 Carvedilol 3.125 mg PO DAILY 12/07/18 Lisinopril 10 mg PO DAILY 12/07/18 Ranitidine HCl [Zantac] 150 mg PO DAILY 12/07/18 Rivaroxaban [Xarelto] 15 mg PO DAILY 12/07/18 pe: Vital Signs Period Temp Pulse Resp BP Sys/Manley Pulse Ox Last 24 Hr 97.3 F-98.8 F 65-96 14-209 85-142/46-109 100-100 nad no jvd rrr s1s2 no mrg cta bl nl eff aao3 no le e/c/c abd nt nd pos bs no jaundice diaphoresis pos dp pt no carotid bruits Laboratory Last Values WBC 7.7 K/mm3 (4.0-10.0) 12/08/18 02:55 RBC 3.24 M/mm3 (4.00-5.60) L 12/08/18 02:55 Hgb 10.3 GM/dL (11.7-16.9) L 12/08/18 02:55 Hct 29.6 % (35.4-49) L 12/08/18 02:55 MCV 91.1 fl (80-96) 12/08/18 02:55 MCH 31.7 pg (25.7-33.7) 12/08/18 02:55 MCHC 34.8 g/dl (32.0-35.9) 12/08/18 02:55 RDW 14.4 % (11.9-15.9) 12/08/18 02:55 Plt Count 176 K/MM3 (134-434) 12/08/18 02:55 MPV 7.9 fl (7.5-11.1) 12/08/18 02:55 Absolute Neuts (auto) 5.8 K/mm3 (1.5-8.0) 12/08/18 02:55 Neutrophils % 75.0 % (42.8-82.8) 12/08/18 02:55 Lymphocytes % 16.3 % (8-40) D 12/08/18 02:55 Monocytes % 7.9 % (3.8-10.2) D 12/08/18 02:55 Eosinophils % 0.5 % (0-4.5) D 12/08/18 02:55 Basophils % 0.3 % (0-2.0) 12/08/18 02:55 Nucleated RBC % 0 % (0-0) 12/08/18 02:55 PT with INR 14.70 SEC (9.7-13.0) H 12/08/18 06:08 INR 1.24 (0.83-1.09) H 12/08/18 06:08 PTT (Actin FS) 36.5 SECONDS (25.2-36.5) 12/07/18 22:25 Fibrinogen 284.0 mg/dL (238-498) 12/07/18 22:25 Sodium 139 mmol/L (136-145) 12/08/18 06:08 Potassium 3.8 mmol/L (3.5-5.1) 12/08/18 06:08 Chloride 109 mmol/L (98-107) H 12/08/18 06:08 Carbon Dioxide 24 mmol/L (21-32) 12/08/18 06:08 Anion Gap 7 MMOL/L (8-16) L 12/08/18 06:08 BUN 14.9 mg/dL (7-18) 12/08/18 06:08 Creatinine 0.6 mg/dL (0.55-1.3) 12/08/18 06:08 Est GFR (CKD-EPI)AfAm 116.42 12/08/18 06:08 Est GFR (CKD-EPI)NonAf 100.45 12/08/18 06:08 Random Glucose 89 mg/dL (74-106) 12/08/18 06:08 Lactic Acid 1.3 mmol/L (0.4-2.0) 12/07/18 22:25 Calcium 7.5 mg/dL (8.5-10.1) L 12/08/18 06:08 Phosphorus 1.8 mg/dL (2.5-4.9) L 12/08/18 06:08 Magnesium 1.7 mg/dL (1.8-2.4) L 12/08/18 06:08 Total Bilirubin 1.4 mg/dL (0.2-1) H 12/08/18 06:08 AST 10 U/L (15-37) L 12/08/18 06:08 ALT 13 U/L (13-61) 12/08/18 06:08 Alkaline Phosphatase 45 U/L (45-117) 12/08/18 06:08 Creatine Kinase 50 U/L (26-308) 12/07/18 11:15 Troponin I < 0.02 ng/ml (0.00-0.05) 12/07/18 11:15 Total Protein 4.7 g/dl (6.4-8.2) L 12/08/18 06:08 Albumin 2.6 g/dl (3.4-5.0) L 12/08/18 06:08 Total Amylase 52 U/L (25-115) 12/07/18 11:15 Lipase 95 U/L (73-393) 12/07/18 11:15 Blood Type B POSITIVE 12/07/18 12:52 Antibody Screen Negative 12/07/18 11:45 Crossmatch See Detail 12/07/18 11:45 tele: sr ecg: afib with rvr, no ischemic changes, nl qtc a/p: 73 m hx pafib, cad s/p remote mi/pci 20 yrs ago, hld, htn, here with rectal bleed. GIB: -GI following. No cardiac contraindications to egd/foc. -holding asa, ac pafib: -in sr currently. holding home bb 2/2 gib, low bp. -holding xarelto for now 2/2 gib -cont tele cad, remote mi/pci: -no signs acs -hold home statin, bb, remington-i during gib, npo for now -can likely dc asa and cont ac only after acute issues resolved hld: -resume statin when taking po htn: -holding home bp meds 2/2 low bp in setting of gib
--- NOTE | 2018-12-08 12:33 | PN ---
Progress Note (short form) - Note Progress Note: Seen in follow up. No events overnight. Feels well. No further hematochezia Inpatient meds reviewed: Current Medications Generic Name Dose Route Start Last Admin Trade Name Rayshawn PRN Reason Stop Dose Admin Chlorhexidine Gluconate 1 applic 12/07/18 22:00 12/07/18 21:36 Hibiclens For Decolonization - TP 1 applic HS SARAY Administration Lactated Ringer's 1,000 ml in 1,000 mls @ 100 mls/hr 12/07/18 23:15 12/08/18 11:07 Lactated Ringers Solution IV 100 mls/hr ASDIR SARAY Administration Sodium Chloride 1,000 mls @ 100 mls/hr 12/08/18 11:25 Normal Saline - IV ASDIR SARAY Pantoprazole Sodium 40 mg 12/07/18 22:00 12/08/18 11:08 Protonix Iv IVPB 40 mg BID SARAY Administration On Examination: Last Vital Signs Temp Pulse Resp BP Pulse Ox 98.2 F 84 16 92/53 L 100 12/08/18 06:00 12/08/18 06:00 12/08/18 06:00 12/08/18 06:00 12/07/18 20:23 General: In no acute distress, sitting in bed. Extremities: No pallor or icterus. No pedal edema. CVS: S1, S2, regular, no gallop or murmur. Chest: tachypneic but not distressed, soft breath sounds, clear. Abdomen: soft, non-distended Neuro: Alert, somewhat confused, but answers apropriately, non-focal. Swelling RUE, venepuncture sites Labs: CBC, BMP 12/08/18 11:58 12/08/18 06:08 Assessment. Recent GI bleed (likely lower GI source) occurring while on Xarelto and ASA. Bleeding now appears abated - Hb stable. Holding ASA and Xarelto for now. RUE swelling - consider dopplers.
[2018-12-08] MEDS: DEXTROSE 5%-LACTATED RINGERS 1,000 ML IV SCH (14:38)
--- NOTE | 2018-12-08 14:53 | PN ---
Physical Exam: SUBJECTIVE: Patient seen and examined. pt had another episode of bloody BM this morning at 7 30.However, per pt is was less bloody as compared to before. still no abdominal pain, fever. OBJECTIVE: Vital Signs Period Temp Pulse Resp BP Sys/Manley Pulse Ox Last 24 Hr 97.8 F-98.8 F 65-85 14-18 89-142/53-109 100-100 GENERAL: Awake, alert, and fully oriented, in no acute distress. HEAD: Normal with no signs of trauma. EYES: Pupils equal, round and reactive to light, extraocular movements intact, sclera anicteric, conjunctiva clear. No lid lag. EARS, NOSE, THROAT: oropharynx clear without exudates. Moist mucous membranes. NECK: Normal range of motion, supple without lymphadenopathy, JVD, or masses. LUNGS: Breath sounds equal, clear to auscultation bilaterally. No wheezes, and no crackles. No accessory muscle use. HEART: Regular rate and rhythm, normal S1 and S2 without murmur, rub or gallop. ABDOMEN: Soft, nontender, not distended, normoactive bowel sounds, no guarding, no rebound, no masses. No hepatomegaly or splenomegaly. MUSCULOSKELETAL: Normal range of motion at all joints. No bony deformities or tenderness. No CVA tenderness. UPPER EXTREMITIES: 2+ pulses, warm, well-perfused. No cyanosis. No clubbing. No peripheral edema. LOWER EXTREMITIES: 2+ pulses, warm, well-perfused. No calf tenderness. No peripheral edema. PSYCHIATRIC: Cooperative. Good eye contact. Appropriate mood and affect. SKIN: Warm, dry, normal turgor, no rashes or lesions noted, normal capillary refill. Laboratory Results - last 24 hr 12/07/18 12/07/18 12/07/18 11:45 16:55 16:55 WBC 8.9 RBC 3.44 L Hgb 11.1 L Hct 32.4 L MCV 94.3 MCH 32.2 MCHC 34.1 RDW 13.6 Plt Count 216 MPV 7.6 Absolute Neuts (auto) Neutrophils % Lymphocytes % Monocytes % Eosinophils % Basophils % Nucleated RBC % PT with INR INR PTT (Actin FS) 37.1 H Fibrinogen Sodium Potassium Chloride Carbon Dioxide Anion Gap BUN Creatinine Est GFR (CKD-EPI)AfAm Est GFR (CKD-EPI)NonAf Random Glucose Lactic Acid Calcium Phosphorus Magnesium Total Bilirubin AST ALT Alkaline Phosphatase Total Protein Albumin Blood Type B POSITIVE Antibody Screen Negative Crossmatch See Detail 12/07/18 12/07/18 12/07/18 19:00 21:40 22:25 WBC 7.9 RBC 3.11 L Hgb 9.8 L Hct 29.2 L MCV 94.1 MCH 31.7 MCHC 33.7 RDW 13.3 Plt Count 197 MPV 7.6 Absolute Neuts (auto) Neutrophils % Lymphocytes % Monocytes % Eosinophils % Basophils % Nucleated RBC % PT with INR INR PTT (Actin FS) Fibrinogen 284.0 Sodium Potassium Chloride Carbon Dioxide Anion Gap BUN Creatinine Est GFR (CKD-EPI)AfAm Est GFR (CKD-EPI)NonAf Random Glucose Lactic Acid 0.9 Calcium Phosphorus Magnesium Total Bilirubin AST ALT Alkaline Phosphatase Total Protein Albumin Blood Type Antibody Screen Crossmatch 12/07/18 12/07/18 12/08/18 22:25 22:25 02:55 WBC 7.7 RBC 3.24 L Hgb 10.3 L Hct 29.6 L MCV 91.1 MCH 31.7 MCHC 34.8 RDW 14.4 Plt Count 176 MPV 7.9 Absolute Neuts (auto) 5.8 Neutrophils % 75.0 Lymphocytes % 16.3 D Monocytes % 7.9 D Eosinophils % 0.5 D Basophils % 0.3 Nucleated RBC % 0 PT with INR 17.40 H INR 1.47 H PTT (Actin FS) 36.5 Fibrinogen Sodium Potassium Chloride Carbon Dioxide Anion Gap BUN Creatinine Est GFR (CKD-EPI)AfAm Est GFR (CKD-EPI)NonAf Random Glucose Lactic Acid 1.3 Calcium Phosphorus Magnesium Total Bilirubin AST ALT Alkaline Phosphatase Total Protein Albumin Blood Type Antibody Screen Crossmatch 12/08/18 12/08/18 12/08/18 06:08 06:08 11:58 WBC 9.1 RBC 3.42 L Hgb 10.7 L Hct 31.1 L MCV 91.0 MCH 31.4 MCHC 34.5 RDW 15.3 Plt Count 184 MPV 7.7 Absolute Neuts (auto) Neutrophils % Lymphocytes % Monocytes % Eosinophils % Basophils % Nucleated RBC % PT with INR 14.70 H INR 1.24 H PTT (Actin FS) Fibrinogen Sodium 139 Potassium 3.8 Chloride 109 H Carbon Dioxide 24 Anion Gap 7 L BUN 14.9 Creatinine 0.6 Est GFR (CKD-EPI)AfAm 116.42 Est GFR (CKD-EPI)NonAf 100.45 Random Glucose 89 Lactic Acid Calcium 7.5 L Phosphorus 1.8 L Magnesium 1.7 L Total Bilirubin 1.4 H AST 10 L ALT 13 Alkaline Phosphatase 45 Total Protein 4.7 L Albumin 2.6 L Blood Type Antibody Screen Crossmatch Active Medications Generic Name Dose Route Start Last Admin Trade Name Freq PRN Reason Stop Dose Admin Chlorhexidine Gluconate 1 applic 12/07/18 22:00 12/07/18 21:36 Hibiclens For Decolonization - TP 1 applic HS SARAY Administration Dextrose/Lactated Ringer's 1,000 mls @ 100 mls/hr 12/08/18 13:45 12/08/18 14: 38 D5-Lr - IV 100 mls/hr ASDIR SARAY Administration Pantoprazole Sodium 40 mg 12/07/18 22:00 12/08/18 11:08 Protonix Iv IVPB 40 mg BID SARAY Administration ASSESSMENT/PLAN: 73 y/o M with PMH of Afib on Xarelto (last dose increased was 3 yrs ago), CAD s/ p one stent in the LAD 21 years ago, HTN, HLD admitted BRBPR. ICU adimission BRBPR. Painless. most likely Diverticular in origin/ AVM/Hemorrhoids (internal) overnight bp dropped and hb as well. per Heme Dr Tsang RBC and plts transfusion x1. and CTA of abdomen done Hb 10.7 currently and bp stable in 116/66 loss of IV sites due to infiltration. Midline access established L basilic vein. cont CBC q 4 hrs hold xarelto and asa. PT 14.7 PTT 36.5 INR 1.24 currently Keep NPO except meds as pt is optimized and xarelto effect has worn off (as per Heme as well) upper endoscopy could be performed to exclude brisk upper bleed along with colonoscopy. Per Dr Goldstein earliest can be Monday. Cardiology rec continue current management and d/c aspirin and keep AC only when resuming meds HTN hypotensive on admission , now low normal in 100s hold BP meds FEN hypophosphotemia and hypomagnesimia. both repleted DVT SCDs holding ACs 2/2 bleeding Visit type - Emergency Visit Emergency Visit: Yes ED Registration Date: 12/07/18 Care time: The patient presented to the Emergency Department on the above date and was hospitalized for further evaluation of their emergent condition. - New Patient This patient is new to me today: No - Critical Care Critical Care patient: Yes Total Critical Care Time (in minutes): 35 Critical Care Statement: The care of this patient involved high complexity decision making to prevent further life threatening deterioration of the patient 's condition and/or to evaluate & treat vital organ system(s) failure or risk of failure. - Discharge Referral Referred to [facility] No ATTENDING PHYSICIAN STATEMENT I saw and evaluated the patient. I reviewed the resident's note and discussed the case with the resident. I agree with the resident's findings and plan as documented. SUBJECTIVE: OBJECTIVE: ASSESSMENT AND PLAN:
--- NOTE | 2018-12-08 15:13 | PN.GI ---
GI Progress Note Subjective: GI NOte ( covering Dr Lopez): Had a blood BM today but volume was less. None since 7AM. NO pain. Hb stable - Objective Vital Signs: Vital Signs Temperature 98.2 F 12/08/18 06:00 Pulse Rate 80 12/08/18 12:00 Respiratory Rate 18 12/08/18 12:00 Blood Pressure 111/55 L 12/08/18 12:00 O2 Sat by Pulse Oximetry (%) 100 12/08/18 09:00 Laboratory Tests 12/07/18 12/08/18 12/08/18 21:40 02:55 11:58 Hgb 9.8 L 10.3 L 10.7 L Constitutional: No Distress ...Auscultate: Yes: Normoactive Bowel Sounds ...Palpate: Yes: Soft, Other (nontender) Labs: CBC, BMP 12/08/18 11:58 12/08/18 06:08 INR, PTT INR 1.24 (0.83-1.09) H 12/08/18 06:08 Fibrinogen 284.0 mg/dL (238-498) 12/07/18 22:25 Assessment/Plan Assessment: - Agree that a resolving diverticular bleed is the most likely etiology and that he should have an EGD and colonoscopy before resuming antiplatelet and NOAC regimen Plan: -- Serial Hbs -- Will try to arrange EGD for Monday Problem List - Problems (1) Gastrointestinal hemorrhage Code(s): K92.2 - GASTROINTESTINAL HEMORRHAGE, UNSPECIFIED (2) Hypertension Code(s): I10 - ESSENTIAL (PRIMARY) HYPERTENSION (3) Hyperlipidemia Code(s): E78.5 - HYPERLIPIDEMIA, UNSPECIFIED (4) Atrial fibrillation Code(s): I48.91 - UNSPECIFIED ATRIAL FIBRILLATION (5) History of coronary artery stent placement Code(s): Z95.5 - PRESENCE OF CORONARY ANGIOPLASTY IMPLANT AND GRAFT (6) Family history of stomach cancer Code(s): Z80.0 - FAMILY HISTORY OF MALIGNANT NEOPLASM OF DIGESTIVE ORGANS (7) Arteriosclerotic heart disease (ASHD) Code(s): I25.10 - ATHSCL HEART DISEASE OF [place] CORONARY ARTERY W/O ANG PCTRS (8) Rectal bleed Code(s): K62.5 - HEMORRHAGE OF ANUS AND RECTUM
[2018-12-08 18:57] LABS: HEMATOCRIT 25.9 % (35.4-49); HEMOGLOBIN 9.3 GM/dL (11.7-16.9); MCHC 35.9 g/dl (32.0-35.9); MEAN CELL VOLUME 89.3 fl (80-96); MEAN PLT VOLUME 6.9 fl (7.5-11.1); PLATELET COUNT 172 K/MM3 (134-434); RBC 2.89 M/mm3 (4.00-5.60); RDW 15.2 % (11.9-15.9); WHITE BLOOD COUNT 8.3 K/mm3 (4.0-10.0)
[2018-12-08 19:46] LABS: MAGNESIUM 2.3 mg/dL (1.8-2.4); PHOSPHOROUS 2.1 mg/dL (2.5-4.9); POTASSIUM 3.5 mmol/L (3.5-5.1)
--- NOTE | 2018-12-08 20:22 | EKG ---
Test Reason : Blood Pressure : / mmHG Vent. Rate : 142 BPM Atrial Rate : 159 BPM P-R Int : 000 ms QRS Dur : 074 ms QT Int : 320 ms P-R-T Axes : 000 074 000 degrees QTc Int : 492 ms ATRIAL FIBRILLATION WITH RAPID VENTRICULAR RESPONSE CANNOT RULE OUT ANTEROSEPTAL INFARCT (CITED ON OR BEFORE 07-DEC-2018) ABNORMAL ECG WHEN COMPARED WITH ECG OF 07-DEC-2018 10:56, ATRIAL FIBRILLATION HAS REPLACED SINUS RHYTHM VENT. RATE HAS INCREASED BY 76 BPM QUESTIONABLE CHANGE IN INITIAL FORCES OF ANTERIOR LEADS ST NOW DEPRESSED IN INFERIOR LEADS ST NOW DEPRESSED IN LATERAL LEADS Confirmed by MD TEOFILO, JOCELYN ([id number]) on 12/08/2018 8:22:42 PM Referred By: Confirmed By:JOCELYN RED MD
--- NOTE | 2018-12-08 20:23 | EKG ---
Test Reason : Blood Pressure : / mmHG Vent. Rate : 066 BPM Atrial Rate : 066 BPM P-R Int : 142 ms QRS Dur : 080 ms QT Int : 382 ms P-R-T Axes : 045 070 070 degrees QTc Int : 400 ms NORMAL SINUS RHYTHM SEPTAL INFARCT , AGE UNDETERMINED ABNORMAL ECG NO PREVIOUS ECGS AVAILABLE Confirmed by MD TEOFILO, JOCELYN ([id number]) on 12/08/2018 8:22:49 PM Referred By: Confirmed By:JOCELYN RED MD
[2018-12-08] MEDS: CHLORHEXIDINE GLUCONATE 4% CLEANSER FOR DECOLONIZATION TP SCH (21:18)
[2018-12-09 01:10] LABS: BASO % 0.7 % (0-2.0); EOS % 1.3 % (0-4.5); HEMATOCRIT 24.9 % (35.4-49); HEMOGLOBIN 8.6 GM/dL (11.7-16.9); LYMPH % 22.8 % (8-40); MCH 31.1 pg (25.7-33.7); MCHC 34.5 g/dl (32.0-35.9); MEAN PLT VOLUME 7.4 fl (7.5-11.1); MONO % 12.1 % (3.8-10.2); NEUT % 63.1 % (42.8-82.8); PLATELET COUNT 162 K/MM3 (134-434); RBC 2.77 M/mm3 (4.00-5.60); RDW 14.9 % (11.9-15.9); WHITE BLOOD COUNT 7.5 K/mm3 (4.0-10.0)
[2018-12-09 06:10] LABS: BASO % 0.3 % (0-2.0); EOS % 1.5 % (0-4.5); HEMATOCRIT 26.3 % (35.4-49); HEMOGLOBIN 9.5 GM/dL (11.7-16.9); LYMPH % 15.9 % (8-40); MCH 32.4 pg (25.7-33.7); MCHC 35.9 g/dl (32.0-35.9); MEAN CELL VOLUME 90.2 fl (80-96); MEAN PLT VOLUME 7.4 fl (7.5-11.1); MONO % 12.6 % (3.8-10.2); NEUT % 69.7 % (42.8-82.8); PLATELET COUNT 175 K/MM3 (134-434); RBC 2.92 M/mm3 (4.00-5.60); RDW 14.6 % (11.9-15.9); WHITE BLOOD COUNT 7.3 K/mm3 (4.0-10.0)
[2018-12-09 06:31] LABS: BLOOD UREA NITROGEN 8.3 mg/dL (7-18); CALCIUM 7.5 mg/dL (8.5-10.1); CREATININE 0.8 mg/dL (0.55-1.3); POTASSIUM 3.6 mmol/L (3.5-5.1)
--- NOTE | 2018-12-09 08:29 | PN ---
Progress Note (short form) - Note Progress Note: PULM/CCM Pt seen & examined in ICU. Some bloody stool yesterday - no reported bloody BMs O/N. CA+OX3, NAD. Hgb up --> 9.5 & stable. EGD & Colonoscopy set for tomorrow AM. Active Medications Chlorhexidine Gluconate (Hibiclens For Decolonization -) 1 applic TP HS [facility] Last Admin: 12/08/18 21:18 Dose: 1 applic Dextrose/Lactated Ringer's (D5-Lr -) 1,000 mls @ 100 mls/hr IV ASDIR SARAY Last Admin: 12/08/18 14:38 Dose: 100 mls/hr Pantoprazole Sodium (Protonix Iv) 40 mg IVPB BID [facility] Last Admin: 12/08/18 21:16 Dose: 40 mg Vital Signs Period Temp Pulse Resp BP Sys/Manley Pulse Ox Last 24 Hr 98.4 F-100 F 60-84 99-130/44-85 98-100 Intake & Output 12/06/18 12/07/18 12/08/18 12/09/18 23:59 23:59 23:59 23:59 Intake Total 1000 2750 1200 Output Total 600 500 Balance 1000 2150 700 Weight 62.142 kg 64.892 kg GEN: Elderly man, in bed, NAD, CA+OX3 PULM: CTAB CV: nml S1, S2, RR, unable to appreciate any G/M/R ABD: + BS, S/S N/T N/D X4Q EXT: WWPX4, + Pulses, (-) edema SKIN: Warm, Dry, no obvious rashes, lesions, or ulcers CBC, BMP 12/09/18 05:37 12/09/18 05:37 Imaging - Results CXR 12/08: Left upper extremity midline pain Trachea midline with normal heart size, no mediastinal widening No infiltrate, mass or effusion, no fractures or pneumothorax Impression: No acute changes in the lungs. Cat Scan: Report Reviewed (CTAP 12/07: NEGATIVE) EKG: Image Reviewed (12 LEAD 12/07: RSR @ 66 w/o ectopy, qu'ed out in V1 & V2 c/ w septal infarction but age unknown & pt has definitive Hx/o , no ST or T-wave aberration, QTc = 400ms (My Read).) Problem List - Problems (1) Rectal bleed Code(s): K62.5 - HEMORRHAGE OF ANUS AND RECTUM Assessment/Plan ASSESS: -LGIB in s/o antiplatelt and NOAC therapy. Last dose of Xeralto and ASA --> at 8pm (Half life of Xeralto --11-17hrs) -HTN -HL -CAD w/ stents on ASA -A-Fib on Xarelto PLAN: -Hold all anti-HTN meds -Hold all AC -NPO -Large bore IV X2 -PPI -Trend CBC -F/u Coags -Trend Fibrinogen -Normal Transfusion Thresholds -If pt continues to bleed to the point of instability repeat mono-donor plts -Bowel Prep O/N -EGD & Colonoscopy in the AM -GI Consult -Consider surgical consult -CARDS (Holding AC on an A-Fib Pt) NINFA, EDUARDO-BC [facility] ICU PULM/CCM [id number]
--- NOTE | 2018-12-09 09:25 | PN ---
Progress Note (short form) - Note Progress Note: Subjective: no fever ro chills. had no BM since yesterday Am . no abd pain, no N/V. has no light headedness. feels he needs to have BM now Objective: Vital Signs: Last Vital Signs Temp Pulse Resp BP Pulse Ox 98.4 F 61 17 106/57 L 98 12/09/18 06:00 12/09/18 07:59 12/09/18 07:59 12/09/18 07:59 12/09/18 07:53 Laboratory Results - last 24 hr 12/08/18 12/08/18 12/08/18 11:58 18:48 18:48 WBC 9.1 8.3 RBC 3.42 L 2.89 L Hgb 10.7 L 9.3 L Hct 31.1 L 25.9 L D MCV 91.0 89.3 MCH 31.4 32.0 MCHC 34.5 35.9 RDW 15.3 15.2 Plt Count 184 172 MPV 7.7 6.9 L D Absolute Neuts (auto) Neutrophils % Lymphocytes % Monocytes % Eosinophils % Basophils % Nucleated RBC % Sodium Potassium 3.5 Chloride Carbon Dioxide Anion Gap BUN Creatinine Est GFR (CKD-EPI)AfAm Est GFR (CKD-EPI)NonAf Random Glucose Calcium Phosphorus 2.1 L Magnesium 2.3 12/09/18 12/09/18 12/09/18 00:30 05:37 05:37 WBC 7.5 7.3 RBC 2.77 L 2.92 L Hgb 8.6 L 9.5 L Hct 24.9 L 26.3 L MCV 90.0 90.2 MCH 31.1 32.4 MCHC 34.5 35.9 RDW 14.9 14.6 Plt Count 162 175 MPV 7.4 L 7.4 L Absolute Neuts (auto) 4.8 5.1 Neutrophils % 63.1 69.7 Lymphocytes % 22.8 D 15.9 D Monocytes % 12.1 H 12.6 H Eosinophils % 1.3 D 1.5 Basophils % 0.7 0.3 Nucleated RBC % 0 0 Sodium 142 Potassium 3.6 Chloride 108 H Carbon Dioxide 28 Anion Gap 6 L BUN 8.3 Creatinine 0.8 Est GFR (CKD-EPI)AfAm 103.44 Est GFR (CKD-EPI)NonAf 89.25 Random Glucose 119 H Calcium 7.5 L Phosphorus Magnesium Physical Exam: NAD, pale, awake. MMM CV: RRR. Lungs: CTAB Abd: soft, NT, ND, NL BS. Ext: No edema or erythema. ASSESSMENT AND PLAN: 73 y/o man with h/o CAD, s/p CABG, HTN, HLP, A fib on xarelto, who presented with rectal bleed 1- Painless Rectal bleed : likely lower GI bleed from diverticular source or AVM. - stable Hb and no more bleed. BP on lower side , but ot tachy - repeat HB this afternoon - for colo and EGD tomorrow - if active significant bleed, will get CTA - cont to hold AC and ASA - NPO - IVF d5LR - repeat Mg and Phos 2-Acute blood loss anemia. transfuse as needed 3- H/o HTN: monitor at this time. hold meds Dispo: ICU . Visit type - Emergency Visit Emergency Visit: Yes ED Registration Date: 12/07/18 Care time: The patient presented to the Emergency Department on the above date and was hospitalized for further evaluation of their emergent condition. - New Patient This patient is new to me today: No - Critical Care Critical Care patient: Yes Total Critical Care Time (in minutes): 25
[2018-12-09 09:43] LABS: PHOSPHOROUS 2.2 mg/dL (2.5-4.9)
[2018-12-09] MEDS: PANTOPRAZOLE SODIUM 40 MG VIAL IVPB SCH ×2 (09:52→21:28)
--- NOTE | 2018-12-09 10:54 | PN ---
Progress Note (short form) - Note Progress Note: s: no cp sob palps dizzy; no further gib Current Medications Generic Name Dose Route Start Last Admin Trade Name Rayshawn PRN Reason Stop Dose Admin Chlorhexidine Gluconate 1 applic 12/07/18 22:00 12/08/18 21:18 Hibiclens For Decolonization - TP 1 applic HS SARAY Administration Dextrose/Lactated Ringer's 1,000 mls @ 100 mls/hr 12/08/18 13:45 12/08/18 14: 38 D5-Lr - IV 100 mls/hr ASDIR SARAY Administration Pantoprazole Sodium 40 mg 12/07/18 22:00 12/09/18 09:52 Protonix Iv IVPB 40 mg BID SARAY Administration Vital Signs Period Temp Pulse Resp BP Sys/Manley Pulse Ox Last 24 Hr 98.4 F-100 F 60-83 - 99-121/44-62 98-98 nad no jvd rrr s1s2 no mrg cta bl nl eff aao3 no le e/c/c abd nt nd pos bs no jaundice diaphoresis CBC, BMP 12/09/18 05:37 12/09/18 05:37 tele: sr ecg: afib with rvr, no ischemic changes, nl qtc a/p: 73 m hx pafib, cad s/p remote mi/pci 20 yrs ago, hld, htn, here with rectal bleed. GIB: -GI following. No cardiac contraindications to egd/foc. -holding asa, ac pafib: -in sr currently. holding home bb 2/2 gib, low bp. -holding xarelto for now 2/2 gib -cont tele cad, remote mi/pci: -no signs acs -hold home statin, bb, [place]-i during gib, npo for now -can likely dc asa and cont ac only after acute issues resolved hld: -resume statin when taking po htn: -holding home bp meds 2/2 low bp in setting of gib
--- NOTE | 2018-12-09 11:36 | PN.GI ---
GI Progress Note Subjective: GI NOte ( covering Dr Lopez): NO BM today. Hb stable. I have discussed EGD and colonoscopy in detail with Moses including informing him of the potential for such complications as perforation and hemorrhage. He has granted informed consents for both - Objective Vital Signs: Vital Signs Temperature 98.4 F 12/09/18 06:00 Pulse Rate 61 12/09/18 07:59 Respiratory Rate 17 12/09/18 07:59 Blood Pressure 106/57 L 12/09/18 07:59 O2 Sat by Pulse Oximetry (%) 98 12/09/18 07:53 Laboratory Tests 12/08/18 12/09/18 12/09/18 06:08 00:30 05:37 Hgb 8.6 L 9.5 L BUN 14.9 Creatinine 0.6 12/09/18 05:37 Hgb BUN 8.3 Creatinine 0.8 Constitutional: No Distress ...Auscultate: Yes: Normoactive Bowel Sounds ...Palpate: Yes: Soft, Other (nontender) Labs: CBC, BMP 12/09/18 05:37 12/09/18 05:37 INR, PTT INR 1.24 (0.83-1.09) H 12/08/18 06:08 Fibrinogen 284.0 mg/dL (238-498) 12/07/18 22:25 Assessment/Plan Assessment: - Agree that a resolving diverticular bleed is the most likely etiology and that he should have an EGD and colonoscopy before resuming antiplatelet and NOAC regimen Plan: -- Serial Hbs -- EGD tomorrow, if unrevealing then colonoscopy on 12/11 Problem List - Problems (1) Gastrointestinal hemorrhage Code(s): K92.2 - GASTROINTESTINAL HEMORRHAGE, UNSPECIFIED (2) Hypertension Code(s): I10 - ESSENTIAL (PRIMARY) HYPERTENSION (3) Hyperlipidemia Code(s): E78.5 - HYPERLIPIDEMIA, UNSPECIFIED (4) Atrial fibrillation Code(s): I48.91 - UNSPECIFIED ATRIAL FIBRILLATION (5) History of coronary artery stent placement Code(s): Z95.5 - PRESENCE OF CORONARY ANGIOPLASTY IMPLANT AND GRAFT (6) Family history of stomach cancer Code(s): Z80.0 - FAMILY HISTORY OF MALIGNANT NEOPLASM OF DIGESTIVE ORGANS (7) Arteriosclerotic heart disease (ASHD) Code(s): I25.10 - ATHSCL HEART DISEASE OF [place] CORONARY ARTERY W/O ANG PCTRS (8) Rectal bleed Code(s): K62.5 - HEMORRHAGE OF ANUS AND RECTUM
[2018-12-09 11:49] VITALS: BMI 24.5
[2018-12-09] MEDS: DEXTROSE 5%-LACTATED RINGERS 1,000 ML IV SCH ×2 (13:00→22:00)
[2018-12-09 15:47] LABS: HEMATOCRIT 26.1 % (35.4-49); HEMOGLOBIN 8.9 GM/dL (11.7-16.9); MCHC 33.9 g/dl (32.0-35.9); MEAN CELL VOLUME 91.2 fl (80-96); MEAN PLT VOLUME 7.7 fl (7.5-11.1); PLATELET COUNT 175 K/MM3 (134-434); RBC 2.86 M/mm3 (4.00-5.60); RDW 14.7 % (11.9-15.9); WHITE BLOOD COUNT 7.6 K/mm3 (4.0-10.0)
[2018-12-09] MEDS ORDERED: NAPH,MB-DB/K PH,MBDB POWDER PACKET PO ONE (17:18)
[2018-12-09] MEDS: CHLORHEXIDINE GLUCONATE 4% CLEANSER FOR DECOLONIZATION TP SCH (21:27)
[2018-12-09 23:20] LABS: HEMATOCRIT 27.7 % (35.4-49); HEMOGLOBIN 9.5 GM/dL (11.7-16.9); MCH 31.1 pg (25.7-33.7); MCHC 34.4 g/dl (32.0-35.9); MEAN CELL VOLUME 90.5 fl (80-96); MEAN PLT VOLUME 7.2 fl (7.5-11.1); PLATELET COUNT 195 K/MM3 (134-434); RBC 3.06 M/mm3 (4.00-5.60); RDW 14.2 % (11.9-15.9); WHITE BLOOD COUNT 8.4 K/mm3 (4.0-10.0)
[2018-12-10 06:35] LABS: HEMATOCRIT 23.8 % (35.4-49); HEMOGLOBIN 8.6 GM/dL (11.7-16.9); MCH 32.4 pg (25.7-33.7); MEAN CELL VOLUME 89.9 fl (80-96); MEAN PLT VOLUME 7.4 fl (7.5-11.1); PLATELET COUNT 169 K/MM3 (134-434); RBC 2.65 M/mm3 (4.00-5.60); RDW 14.3 % (11.9-15.9); WHITE BLOOD COUNT 6.8 K/mm3 (4.0-10.0)
[2018-12-10 06:43] LABS: INR 1.1 (0.83-1.09)
[2018-12-10 06:46] LABS: ACTIVATED PTT 29.7 SECONDS (25.2-36.5)
[2018-12-10 06:48] LABS: BLOOD UREA NITROGEN 4.9 mg/dL (7-18); CALCIUM 7.6 mg/dL (8.5-10.1); CREATININE 0.7 mg/dL (0.55-1.3); MAGNESIUM 1.7 mg/dL (1.8-2.4); PHOSPHOROUS 2.4 mg/dL (2.5-4.9); POTASSIUM 3.3 mmol/L (3.5-5.1)
[2018-12-10] MEDS ORDERED: MAGNESIUM SULF 50% (8.12 MEQ/2 ML-1 GM VIAL) IVPB ONE (07:02)
[2018-12-10] MEDS: KCL 10 MEQ IVPB 10 MEQ/100 ML INFUS.BAG IVPB SCH ×2 (07:55→07:56)
[2018-12-10] MEDS ORDERED: POTASSIUM PHOSPHATE 30 MM in SODIUM CHLORIDE 250 ML IVPB ONE (08:16)
--- NOTE | 2018-12-10 08:50 | PN ---
Physical Exam: SUBJECTIVE: Patient seen and examined. No acute events overnight. No BM yesterday, AB pain, or bleeding. Plan EGD today OBJECTIVE: Vital Signs Period Temp Pulse Resp BP Sys/Manley Pulse Ox Last 24 Hr 98.3 F-98.6 F 65-80 14-20 89-114/46-60 98 GENERAL: The patient is awake, alert, and fully oriented, in no acute distress. HEAD: Normal with no signs of trauma. EYES: PERRL, extraocular movements intact, sclera anicteric, conjunctiva clear. No ptosis. ENT: Ears normal, nares patent, oropharynx clear without exudates, moist mucous membranes. NECK: Trachea midline, full range of motion, supple. LUNGS: Breath sounds equal, clear to auscultation bilaterally, no wheezes, no crackles, no accessory muscle use. HEART: Regular rate and rhythm, S1, S2 without murmur, rub or gallop. ABDOMEN: Soft, nontender, nondistended, normoactive bowel sounds, no guarding, no rebound, no hepatosplenomegaly, no masses. EXTREMITIES: 2+ pulses, warm, well-perfused, no edema. NEUROLOGICAL: Cranial nerves II through XII grossly intact. Normal speech, gait not observed. PSYCH: Normal mood, normal affect. SKIN: Warm, dry, normal turgor, no rashes or lesions noted Laboratory Results - last 24 hr 12/09/18 12/09/18 12/09/18 05:37 15:27 23:00 WBC 7.6 8.4 RBC 2.86 L 3.06 L Hgb 8.9 L 9.5 L Hct 26.1 L 27.7 L MCV 91.2 90.5 MCH 31.0 31.1 MCHC 33.9 34.4 RDW 14.7 14.2 Plt Count 175 195 MPV 7.7 7.2 L PT with INR INR PTT (Actin FS) Sodium 142 Potassium 3.6 Chloride 108 H Carbon Dioxide 28 Anion Gap 6 L BUN 8.3 Creatinine 0.8 Est GFR (CKD-EPI)AfAm 103.44 Est GFR (CKD-EPI)NonAf 89.25 Random Glucose 119 H Calcium 7.5 L Phosphorus 2.2 L Magnesium 2.0 Blood Type Antibody Screen 12/10/18 12/10/18 12/10/18 06:10 06:10 06:10 WBC 6.8 RBC 2.65 L Hgb 8.6 L Hct 23.8 L MCV 89.9 MCH 32.4 MCHC 36.0 H RDW 14.3 Plt Count 169 MPV 7.4 L PT with INR INR PTT (Actin FS) Sodium 144 Potassium 3.3 L Chloride 109 H Carbon Dioxide 30 Anion Gap 5 L BUN 4.9 L Creatinine 0.7 Est GFR (CKD-EPI)AfAm 109.27 Est GFR (CKD-EPI)NonAf 94.28 Random Glucose 116 H Calcium 7.6 L Phosphorus 2.4 L Magnesium 1.7 L Blood Type B POSITIVE Antibody Screen Negative 12/10/18 06:10 WBC RBC Hgb Hct MCV MCH MCHC RDW Plt Count MPV PT with INR 13.00 INR 1.10 H PTT (Actin FS) 29.7 Sodium Potassium Chloride Carbon Dioxide Anion Gap BUN Creatinine Est GFR (CKD-EPI)AfAm Est GFR (CKD-EPI)NonAf Random Glucose Calcium Phosphorus Magnesium Blood Type Antibody Screen Active Medications Generic Name Dose Route Start Last Admin Trade Name Freq PRN Reason Stop Dose Admin Chlorhexidine Gluconate 1 applic 12/07/18 22:00 12/09/18 21:27 Hibiclens For Decolonization - TP 1 applic HS SARAY Administration Dextrose/Lactated Ringer's 1,000 mls @ 100 mls/hr 12/08/18 13:45 12/09/18 22: 00 D5-Lr - IV 100 mls/hr ASDIR SARAY Administration Potassium Phosphate 30 mm/ 260 mls @ 62.5 mls/hr 12/10/18 08:16 Sodium Chloride IVPB 12/10/18 12:25 ONCE ONE Pantoprazole Sodium 40 mg 12/07/18 22:00 12/09/18 21:28 Protonix Iv IVPB 40 mg BID SARAY Administration ASSESSMENT/PLAN: ATTENDING PHYSICIAN STATEMENT I saw and evaluated the patient. I reviewed the resident's note and discussed the case with the resident. I agree with the resident's findings and plan as documented. SUBJECTIVE: OBJECTIVE: ASSESSMENT AND PLAN:
--- NOTE | 2018-12-10 09:39 | PN ---
Progress Note, Physician Chief Complaint: GIB No CP or SOB TELE: NSR - Current Medication List Current Medications: Active Medications Chlorhexidine Gluconate (Hibiclens For Decolonization -) 1 applic TP HS [facility] Last Admin: 12/09/18 21:27 Dose: 1 applic Dextrose/Lactated Ringer's (D5-Lr -) 1,000 mls @ 100 mls/hr IV ASDIR [facility] Last Admin: 12/09/18 22:00 Dose: 100 mls/hr Potassium Phosphate 30 mm/ (Sodium Chloride) 260 mls @ 62.5 mls/hr IVPB ONCE ONE Stop: 12/10/18 12:25 Pantoprazole Sodium (Protonix Iv) 40 mg IVPB BID [facility] Last Admin: 12/09/18 21:28 Dose: 40 mg - Objective Vital Signs: Vital Signs Temperature 98.4 F 12/10/18 05:49 Pulse Rate 66 12/10/18 08:00 Respiratory Rate 16 12/10/18 08:49 Blood Pressure 108/54 L 12/10/18 08:00 O2 Sat by Pulse Oximetry (%) 98 12/10/18 08:49 Constitutional: Yes: Calm Cardiovascular: Yes: Regular Rate and Rhythm Respiratory: Yes: CTA Bilaterally Gastrointestinal: Yes: Soft Edema: No Neurological: Yes: Alert, Oriented Labs: CBC, BMP 12/10/18 06:10 12/10/18 06:10 INR, PTT INR 1.10 (0.83-1.09) H 12/10/18 06:10 Fibrinogen 284.0 mg/dL (238-498) 12/07/18 22:25 - ....Imaging EKG: Image Reviewed Assessment/Plan tele: sr ecg: afib with rvr, no ischemic changes, nl qtc a/p: 73 m hx pafib, cad s/p remote mi/pci 20 yrs ago, hld, htn, here with rectal bleed. GIB: -GI following. No cardiac contraindications to egd/foc. -holding asa, ac pafib: -in sr currently. holding home bb 2/2 gib, low bp. -holding xarelto for now 2/2 gib -cont tele cad, remote mi/pci: -no signs acs -hold home statin, bb, remington-i during gib, npo for now -can likely dc asa and cont ac only after acute issues resolved hld: -resume statin when taking po htn: -holding home bp meds 2/2 low bp in setting of gib
[2018-12-10] MEDS: PANTOPRAZOLE SODIUM 40 MG VIAL IVPB SCH ×2 (10:21→21:56)
--- NOTE | 2018-12-10 11:10 | PN ---
Teaching Attending Note Name of Resident: Miguel Bui ATTENDING PHYSICIAN STATEMENT I saw and evaluated the patient. I reviewed the resident's note and discussed the case with the resident. I agree with the resident's findings and plan as documented. SUBJECTIVE: Patient seen & examined in ICU. No BM overnight. No acute change in H & H. No CP or SOB. For upper Endoscopy today. Intake & Output 12/07/18 12/08/18 12/09/18 12/10/18 23:59 23:59 23:59 23:59 Intake Total 1000 2750 2400 1200 Output Total 600 1100 Balance 1000 2150 1300 1200 Weight 137 lb 143 lb 143 lb Last Vital Signs Temp Pulse Resp BP Pulse Ox 98.4 F 66 16 108/54 L 98 12/10/18 05:49 12/10/18 08:00 12/10/18 08:49 12/10/18 08:00 12/10/18 08:49 Active Medications Chlorhexidine Gluconate (Hibiclens For Decolonization -) 1 applic TP HS [facility] Last Admin: 12/09/18 21:27 Dose: 1 applic Dextrose/Lactated Ringer's (D5-Lr -) 1,000 mls @ 100 mls/hr IV ASDIR [facility] Last Admin: 12/09/18 22:00 Dose: 100 mls/hr Potassium Phosphate 30 mm/ (Sodium Chloride) 260 mls @ 62.5 mls/hr IVPB ONCE ONE Stop: 12/10/18 12:25 Last Admin: 12/10/18 10:12 Dose: 62.5 mls/hr Pantoprazole Sodium (Protonix Iv) 40 mg IVPB BID [facility] Last Admin: 12/10/18 10:21 Dose: 40 mg GEN: Awake and alert, NAD PULM: Clear CV: S1, S2, RR ABD: + BS, Soft, non-tender, ND EXT: (+) PP, (-) edema SKIN: Warm, Dry, no obvious rashes, lesions, or ulcers NEURO: non-focal Laboratory Results - last 24 hr 12/09/18 12/09/18 12/10/18 15:27 23:00 06:10 WBC 7.6 8.4 6.8 RBC 2.86 L 3.06 L 2.65 L Hgb 8.9 L 9.5 L 8.6 L Hct 26.1 L 27.7 L 23.8 L MCV 91.2 90.5 89.9 MCH 31.0 31.1 32.4 MCHC 33.9 34.4 36.0 H RDW 14.7 14.2 14.3 Plt Count 175 195 169 MPV 7.7 7.2 L 7.4 L PT with INR INR PTT (Actin FS) Sodium Potassium Chloride Carbon Dioxide Anion Gap BUN Creatinine Est GFR (CKD-EPI)AfAm Est GFR (CKD-EPI)NonAf Random Glucose Calcium Phosphorus Magnesium Blood Type Antibody Screen 12/10/18 12/10/18 12/10/18 06:10 06:10 06:10 WBC RBC Hgb Hct MCV MCH MCHC RDW Plt Count MPV PT with INR 13.00 INR 1.10 H PTT (Actin FS) 29.7 Sodium 144 Potassium 3.3 L Chloride 109 H Carbon Dioxide 30 Anion Gap 5 L BUN 4.9 L Creatinine 0.7 Est GFR (CKD-EPI)AfAm 109.27 Est GFR (CKD-EPI)NonAf 94.28 Random Glucose 116 H Calcium 7.6 L Phosphorus 2.4 L Magnesium 1.7 L Blood Type B POSITIVE Antibody Screen Negative Problem List - Problems (1) Rectal bleed Code(s): K62.5 - HEMORRHAGE OF ANUS AND RECTUM Assessment/Plan -LGIB in a patient with antiplatelet and NOAC therapy. (Last dose of Xeralto and ASA -->12/06 at 8pm) -HTN -HL -CAD w/ stents on ASA -A-Fib on Xarelto PLAN: -For Upper Endoscopy today -Hold all anti-HTN meds -Hold all AC -NPO -Large bore IV X2 -PPI -Trend CBC -F/u Coags -Normal Transfusion Thresholds -Floor pending endoscopy results Dr Alaniz
--- NOTE | 2018-12-10 11:54 | PN ---
Physical Exam: SUBJECTIVE: Patient seen and examined. No acute events overnight. No BM yesterday, AB pain, bleeding. OBJECTIVE: Vital Signs Period Temp Pulse Resp BP Sys/Manley Pulse Ox Last 24 Hr 98.3 F-98.6 F 65-80 14-21 89-114/46-60 98-98 GENERAL: The patient is awake, alert, and fully oriented, in no acute distress. LUNGS: Breath sounds equal, clear to auscultation bilaterally, no wheezes, no crackles, no accessory muscle use. HEART: Regular rate and rhythm, S1, S2 without murmur, rub or gallop. ABDOMEN: Soft, nontender, nondistended, normoactive bowel sounds, no guarding, no rebound, no hepatosplenomegaly, no masses. EXTREMITIES: R arm mild swelling NEUROLOGICAL: Normal speech, gait not observed. PSYCH: Normal mood, normal affect. Laboratory Results - last 24 hr 12/09/18 12/09/18 12/10/18 15:27 23:00 06:10 WBC 7.6 8.4 6.8 RBC 2.86 L 3.06 L 2.65 L Hgb 8.9 L 9.5 L 8.6 L Hct 26.1 L 27.7 L 23.8 L MCV 91.2 90.5 89.9 MCH 31.0 31.1 32.4 MCHC 33.9 34.4 36.0 H RDW 14.7 14.2 14.3 Plt Count 175 195 169 MPV 7.7 7.2 L 7.4 L PT with INR INR PTT (Actin FS) Sodium Potassium Chloride Carbon Dioxide Anion Gap BUN Creatinine Est GFR (CKD-EPI)AfAm Est GFR (CKD-EPI)NonAf Random Glucose Calcium Phosphorus Magnesium Blood Type Antibody Screen 12/10/18 12/10/18 12/10/18 06:10 06:10 06:10 WBC RBC Hgb Hct MCV MCH MCHC RDW Plt Count MPV PT with INR 13.00 INR 1.10 H PTT (Actin FS) 29.7 Sodium 144 Potassium 3.3 L Chloride 109 H Carbon Dioxide 30 Anion Gap 5 L BUN 4.9 L Creatinine 0.7 Est GFR (CKD-EPI)AfAm 109.27 Est GFR (CKD-EPI)NonAf 94.28 Random Glucose 116 H Calcium 7.6 L Phosphorus 2.4 L Magnesium 1.7 L Blood Type B POSITIVE Antibody Screen Negative Active Medications Generic Name Dose Route Start Last Admin Trade Name Rayshawn PRN Reason Stop Dose Admin Chlorhexidine Gluconate 1 applic 12/07/18 22:00 12/09/18 21:27 Hibiclens For Decolonization - TP 1 applic HS SARAY Administration Dextrose/Lactated Ringer's 1,000 mls @ 100 mls/hr 12/08/18 13:45 12/09/18 22: 00 D5-Lr - IV 100 mls/hr ASDIR SARAY Administration Potassium Phosphate 30 mm/ 260 mls @ 62.5 mls/hr 12/10/18 08:16 12/10/18 10: 12 Sodium Chloride IVPB 12/10/18 12:25 62.5 mls/hr ONCE ONE Administration Pantoprazole Sodium 40 mg 12/07/18 22:00 12/10/18 10:21 Protonix Iv IVPB 40 mg BID SARAY Administration ASSESSMENT/PLAN: Moses Voss is a 73yM w PMHx CAD s/p CABG and stents on ASA, HTN, HLD, A fib on xarelto presenting w rectal bleeding. Cardiac - anemia d/t bleeding - anemia - Hgb downtrending 9.5 to 8.6, trending - holding statin, bb, ACEI meds d/t low BP - holding ASA, xarelto d/t bleeding Pulm - breathing RA, no active issues Neuro - AOx3, no active issues GI - rectal bleeding likely lower GI source - endoscopy today normal - plan colonoscopy tomorrow, ordered NPO midnight - NPO for procedure today - D5LR @100mL/hr, 1000mL - I/O ID - afebrile, no active issues Skin - R arm mild swelling - applied cool compress, ordered duplex US r/o DVT FEN - Fluids: D5LR @100mL/hr, 1000mL - Electrolyte abnormalities: hypoK, hypoMg, hypoPhos - all repleted - Nutrition: NPO for procedure today PPX DVT - holding xarelto d/t bleeding GI - Dispo - ICU Miguel Bui EM Resident PGY1 Discussed w attending Dr Alaniz Visit type - Emergency Visit Emergency Visit: Yes ED Registration Date: 12/07/18 Care time: The patient presented to the Emergency Department on the above date and was hospitalized for further evaluation of their emergent condition. - New Patient This patient is new to me today: Yes Date on this admission: 12/10/18 - Critical Care Critical Care patient: Yes Total Critical Care Time (in minutes): 35 Critical Care Statement: The care of this patient involved high complexity decision making to prevent further life threatening deterioration of the patient 's condition and/or to evaluate & treat vital organ system(s) failure or risk of failure. ATTENDING PHYSICIAN STATEMENT I saw and evaluated the patient. I reviewed the resident's note and discussed the case with the resident. I agree with the resident's findings and plan as documented. SUBJECTIVE: OBJECTIVE: ASSESSMENT AND PLAN:
--- NOTE | 2018-12-10 12:46 | PN ---
Teaching Attending Note Name of Resident: Malena Zurita ATTENDING PHYSICIAN STATEMENT I saw and evaluated the patient. I reviewed the resident's note and discussed the case with the resident. I agree with the resident's findings and plan as documented. SUBJECTIVE: no fever or chills. No HESTER ,no N/V. had BM this am , but no blood in it. no Abd pain. No light headedness OBJECTIVE: NAD, pale, awake. MMM CV: RRR. Lungs: CTAB Abd: soft, NT, ND, NL BS. Ext: No edema or erythema. ASSESSMENT AND PLAN: 73 y/o man with h/o CAD, s/p CABG, HTN, HLP, A fib on xarelto, who presented with rectal bleed 1- Painless Rectal bleed: likely lower GI bleed from diverticular source. - stable Hb . BM this am with no bleed . suspect that bleeding had stopped - Had clears yesterday and now NPO - EGD today - colo tomorrow if neg - cont IVF - replete electrolytes 2-Acute blood loss anemia. transfuse as needed 3- H/o HTN: hypotensive over night. No sx. monitor at this time. hold antihypertensive meds
[2018-12-10] MEDS ORDERED: ETOMIDATE 20 MG/10 ML AMPUL IVPUSH ONE (14:48)
[2018-12-10] MEDS ORDERED: BISACODYL 5 MG TABLET.DR (FP) PO ONE (15:29)
[2018-12-10] MEDS ORDERED: PEG 3350/NA SULF BICARB CL/KCL 4000 ML SOLN.RECON PO ONE (16:00)
[2018-12-10] MEDS: DEXTROSE 5%-LACTATED RINGERS 1,000 ML IV SCH (16:44)
[2018-12-10 17:59] LABS: MAGNESIUM 2.3 mg/dL (1.8-2.4); PHOSPHOROUS 3.7 mg/dL (2.5-4.9); POTASSIUM 3.9 mmol/L (3.5-5.1)
--- NOTE | 2018-12-10 18:35 | PN ---
Physical Exam: SUBJECTIVE: Patient seen and examined in the morning today. Did not have any acute events overnight. Denies any chest pain, shortness of breath, abdominal pain, diarrhea, nausea, and vomiting. Denies any dysuria or difficulty urinating. No bowel movements for the past 2 days. OBJECTIVE: Vital Signs Period Temp Pulse Resp BP Sys/Manley Pulse Ox Last 24 Hr 98.3 F-98.6 F 63-79 14-21 89-114/44-57 98-98 GENERAL: The patient is awake, alert, and fully oriented, in no acute distress. HEAD: Normal with no signs of trauma. EYES: Wearing glasses. PERRL, extraocular movements intact, sclera anicteric, conjunctiva clear. No ptosis. ENT: Ears normal, nares patent, oropharynx clear without exudates, moist mucous membranes. NECK: Trachea midline, full range of motion, supple. LUNGS: Breath sounds equal, clear to auscultation bilaterally, no wheezes, no crackles, no accessory muscle use. HEART: Regular rate and rhythm, S1, S2 without murmur, rub or gallop. ABDOMEN: Soft, nontender, nondistended, normoactive bowel sounds, no guarding, no rebound, no hepatosplenomegaly, no masses. NEUROLOGICAL: Cranial nerves II through XII grossly intact. Normal speech, gait not observed. PSYCH: Normal mood, normal affect. SKIN: Warm, dry, normal turgor, no rashes or lesions noted Laboratory Results - last 24 hr 12/07/18 12/09/18 12/10/18 11:45 23:00 06:10 WBC 8.4 6.8 RBC 3.06 L 2.65 L Hgb 9.5 L 8.6 L Hct 27.7 L 23.8 L MCV 90.5 89.9 MCH 31.1 32.4 MCHC 34.4 36.0 H RDW 14.2 14.3 Plt Count 195 169 MPV 7.2 L 7.4 L PT with INR INR PTT (Actin FS) Sodium Potassium Chloride Carbon Dioxide Anion Gap BUN Creatinine Est GFR (CKD-EPI)AfAm Est GFR (CKD-EPI)NonAf Random Glucose Calcium Phosphorus Magnesium Blood Type B POSITIVE Antibody Screen Negative Crossmatch See Detail 12/10/18 12/10/18 12/10/18 06:10 06:10 06:10 WBC RBC Hgb Hct MCV MCH MCHC RDW Plt Count MPV PT with INR 13.00 INR 1.10 H PTT (Actin FS) 29.7 Sodium 144 Potassium 3.3 L Chloride 109 H Carbon Dioxide 30 Anion Gap 5 L BUN 4.9 L Creatinine 0.7 Est GFR (CKD-EPI)AfAm 109.27 Est GFR (CKD-EPI)NonAf 94.28 Random Glucose 116 H Calcium 7.6 L Phosphorus 2.4 L Magnesium 1.7 L Blood Type B POSITIVE Antibody Screen Negative Crossmatch 12/10/18 16:45 WBC RBC Hgb Hct MCV MCH MCHC RDW Plt Count MPV PT with INR INR PTT (Actin FS) Sodium Potassium 3.9 Chloride Carbon Dioxide Anion Gap BUN Creatinine Est GFR (CKD-EPI)AfAm Est GFR (CKD-EPI)NonAf Random Glucose Calcium Phosphorus 3.7 Magnesium 2.3 Blood Type Antibody Screen Crossmatch Active Medications Generic Name Dose Route Start Last Admin Trade Name Freq PRN Reason Stop Dose Admin Chlorhexidine Gluconate 1 applic 12/07/18 22:00 12/09/18 21:27 Hibiclens For Decolonization - TP 1 applic HS SARAY Administration Dextrose/Lactated Ringer's 1,000 mls @ 100 mls/hr 12/08/18 13:45 12/10/18 16: 44 D5-Lr - IV 100 mls/hr ASDIR SARAY Administration Pantoprazole Sodium 40 mg 12/07/18 22:00 12/10/18 10:21 Protonix Iv IVPB 40 mg BID SARAY Administration ASSESSMENT/PLAN: 73 M with PMH of Afib, CAD, HTN, HLD who presented with painless rectal bleeding. 1) Painless rectal bleeding -Likely due to lower GI bleed. -EGD done today. -Colonoscopy scheduled for tomorrow 2) Anemia -Hgb today is 8.6, will transfuse if 8 or lower. -Likely due to bleeding from prior, however no signs of bleeding currently. 3) Likely new episode phlebitis -Follow up U/S of right arm -Continue resting, ice, and elevating the arm. -If results as DVT, will hold off on anti-coagulation until colonoscopy is complete. 4) HTN -Episodes of hypotension, will hold off on antihypertensive medications. 5) CAD -Holding home medications, monitoring in ICU. F: LR@ 100 ml/hr E: monitor CMP N: NPO DVT: SCD Dispo: Admitted to ICU Visit type - Emergency Visit Emergency Visit: Yes ED Registration Date: 12/07/18 Care time: The patient presented to the Emergency Department on the above date and was hospitalized for further evaluation of their emergent condition. - New Patient This patient is new to me today: Yes Date on this admission: 12/10/18 - Critical Care Critical Care patient: Yes Total Critical Care Time (in minutes): 35 Critical Care Statement: The care of this patient involved high complexity decision making to prevent further life threatening deterioration of the patient 's condition and/or to evaluate & treat vital organ system(s) failure or risk of failure. ATTENDING PHYSICIAN STATEMENT I saw and evaluated the patient. I reviewed the resident's note and discussed the case with the resident. I agree with the resident's findings and plan as documented. SUBJECTIVE: OBJECTIVE: ASSESSMENT AND PLAN:
[2018-12-10] MEDS: CHLORHEXIDINE GLUCONATE 4% CLEANSER FOR DECOLONIZATION TP SCH (21:56)
[2018-12-10 22:49] LABS: HEMATOCRIT 29.3 % (35.4-49); MCH 31.4 pg (25.7-33.7); MCHC 34.1 g/dl (32.0-35.9); MEAN PLT VOLUME 7.8 fl (7.5-11.1); PLATELET COUNT 201 K/MM3 (134-434); RBC 3.19 M/mm3 (4.00-5.60); RDW 14.5 % (11.9-15.9); WHITE BLOOD COUNT 6.6 K/mm3 (4.0-10.0)
[2018-12-11] MEDS ORDERED: METOPROLOL TARTRATE 5 MG/5 ML VIAL IVPUSH ONE ×2 (02:28→03:25)
[2018-12-11] MEDS ORDERED: SODIUM CHLORIDE 0.9% 1000 ML INFUS.BAG IV ONE (02:50)
[2018-12-11] MEDS ORDERED: DEXTROSE 5%-LACTATED RINGERS 1,000 ML IV SCH (03:00)
--- NOTE | 2018-12-11 03:07 | PN ---
Progress Note (short form) - Note Progress Note: RN called for rapid a-fib. Pt HR noted to be variable between 150's-160's. EKG shows a-fib with RVR and FLAVIA in aVR with STD in V3-V6. Likely 2/2 demand. Denies CP. Admits to palpitations and SOB. Admits to [place] 21 years ago but states that "this does not feel like it". BP 110/80's. Given 5 lopressor IV. HR between 100's-120's after 5 lopressor. BP 91/54. Given 500 NS bolus. Pt requesting PO hydration but I have told him that he cannot have PO due to procedure this morning. Pt understands. Repeat BP 89/59. 0309 Repeat BP 109/54. Pt denies CP. Will repeat EKG. 0324 Repeat EKG A fib with RVR without FLAVIA or STD. Prior EKG likely 2/2 demand. BP 123/81. HR 160's. Will give 5 loperssor IVP and 25mg lopressor tartrate PO.
[2018-12-11] MEDS ORDERED: METOPROLOL TARTRATE 25 MG TABLET (FP) PO ONE (03:26)
[2018-12-11] MEDS ORDERED: METOPROLOL TARTRATE 5 MG/5 ML VIAL ONE (03:29)
[2018-12-11] MEDS ORDERED: SODIUM CHLORIDE 0.9% 1000 ML INFUS.BAG IV PRN (03:31)
[2018-12-11 07:19] LABS: BASO % 0.5 % (0-2.0); EOS % 3.9 % (0-4.5); HEMATOCRIT 24.8 % (35.4-49); HEMOGLOBIN 8.8 GM/dL (11.7-16.9); LYMPH % 21.9 % (8-40); MCH 32.1 pg (25.7-33.7); MCHC 35.5 g/dl (32.0-35.9); MEAN CELL VOLUME 90.5 fl (80-96); MEAN PLT VOLUME 7.6 fl (7.5-11.1); MONO % 9.5 % (3.8-10.2); NEUT % 64.2 % (42.8-82.8); PLATELET COUNT 192 K/MM3 (134-434); RBC 2.74 M/mm3 (4.00-5.60); RDW 14.2 % (11.9-15.9); WHITE BLOOD COUNT 5.2 K/mm3 (4.0-10.0)
[2018-12-11 07:44] LABS: ALBUMIN 2.5 g/dl (3.4-5.0); BILIRUBIN,TOTAL 0.5 mg/dL (0.2-1); CALCIUM 7.9 mg/dL (8.5-10.1); CREATININE 0.7 mg/dL (0.55-1.3); PHOSPHOROUS 2.6 mg/dL (2.5-4.9); POTASSIUM 3.6 mmol/L (3.5-5.1); TOT PROT 4.9 g/dl (6.4-8.2)
[2018-12-11 08:13] LABS: BLOOD UREA NITROGEN 2.6 mg/dL (7-18)
[2018-12-11] MEDS ORDERED: METOPROLOL TARTRATE 50 MG TABLET (FP) PO SCH (10:00)
[2018-12-11] MEDS: DEXTROSE 5%-LACTATED RINGERS 1,000 ML IV SCH ×3 (10:30→18:17)
[2018-12-11] MEDS: PANTOPRAZOLE SODIUM 40 MG VIAL IVPB SCH (10:31)
--- NOTE | 2018-12-11 10:32 | PN ---
Progress Note (short form) - Note Progress Note: s: no chest pain, palps, dizziness, dyspnea. Episodes of RVR overnight, received IV toprol and PO toprol, rates remain high this AM Current Medications Chlorhexidine Gluconate (Hibiclens For Decolonization -) 1 applic TP HS [facility] Last Admin: 12/10/18 21:56 Dose: 1 applic Digoxin (Lanoxin Injection -) 0.25 mg IVPUSH ONCE ONE Stop: 12/11/18 10:28 Dextrose/Lactated Ringer's (D5-Lr -) 1,000 mls @ 100 mls/hr IV ASDIR [facility] Last Admin: 12/11/18 10:30 Dose: 100 mls/hr Metoprolol Tartrate (Lopressor -) 12.5 mg PO BID SARAY Pantoprazole Sodium (Protonix Iv) 40 mg IVPB BID [facility] Last Admin: 12/10/18 21:56 Dose: 40 mg Sodium Chloride (Normal Saline -) 500 ml IV ONCE PRN PRN Reason: MAP<65mm Hg OR SBP <90 Vital Signs Period Temp Pulse Resp BP Sys/Manley Pulse Ox Last 24 Hr 97.9 F-98.6 F 63-165 16-24 82-150/50-90 98-100 Constitutional: Yes: Calm Cardiovascular: Yes: Regular Rate and Rhythm Respiratory: Yes: CTA Bilaterally Gastrointestinal: Yes: Soft Edema: No Neurological: Yes: Alert, Oriented - ....Imaging EKG: Image Reviewed Assessment/Plan tele: afib episodes of RVR 140s-180s ecg: afib with rvr, no ischemic changes, nl qtc a/p: 73 m hx pafib, cad s/p remote mi/pci 20 yrs ago, hld, htn, here with rectal bleed. GIB: -GI following. No cardiac contraindications to egd/foc. -holding asa, ac pafib: -episodes of RVR, toprol restarted, continue - PRN IV toprol for tachycardia - IV digoxin given low BP -holding xarelto for now 2/2 gib -cont tele cad, remote mi/pci: -no signs acs -hold home statin, bb, [place]-i during gib, npo for now -can likely dc asa and cont ac only after acute issues resolved hld: -resume statin when taking po htn: -holding home bp meds 2/2 low bp in setting of gib
[2018-12-11] MEDS ORDERED: DIGOXIN 0.5 MG/2 ML AMPUL IVPUSH ONE (10:45)
--- NOTE | 2018-12-11 10:54 | PN ---
Teaching Attending Note Name of Resident: Miguel Bui ATTENDING PHYSICIAN STATEMENT I saw and evaluated the patient. I reviewed the resident's note and discussed the case with the resident. I agree with the resident's findings and plan as documented. SUBJECTIVE: Patient seen & examined in ICU. Rapid AFib and marginal hemodynamics which improved with IVF and PRN BB. No CP or SOB. No occult bleeding noted overnight. Rapid AFib this AM and seen by Cardiology. Intake & Output 12/08/18 12/09/18 12/10/18 12/11/18 23:59 23:59 23:59 23:59 Intake Total 2750 2400 2750 4400 Output Total 600 1100 800 450 Balance 2150 1300 1950 3950 Weight 143 lb 143 lb 143 lb Last Vital Signs Temp Pulse Resp BP Pulse Ox 98.2 F 124 H 20 82/53 L 100 12/11/18 06:00 12/11/18 10:52 12/11/18 10:00 12/11/18 10:00 12/11/18 08:25 Active Medications Chlorhexidine Gluconate (Hibiclens For Decolonization -) 1 applic TP HS [facility] Last Admin: 12/10/18 21:56 Dose: 1 applic Dextrose/Lactated Ringer's (D5-Lr -) 1,000 mls @ 100 mls/hr IV ASDIR [facility] Last Admin: 12/11/18 10:30 Dose: 100 mls/hr Metoprolol Tartrate (Lopressor -) 12.5 mg PO BID SARAY Pantoprazole Sodium (Protonix Iv) 40 mg IVPB BID [facility] Last Admin: 12/11/18 10:31 Dose: 40 mg Sodium Chloride (Normal Saline -) 500 ml IV ONCE PRN PRN Reason: MAP<65mm Hg OR SBP <90 GEN: Awake and alert, NAD PULM: Clear CV: Rapid AFib ABD: + BS, Soft, non-tender, ND EXT: (+) PP, (-) edema SKIN: Warm, Dry, no obvious rashes, lesions, or ulcers NEURO: non-focal Laboratory Results - last 24 hr 12/07/18 12/10/18 12/10/18 11:45 16:45 22:40 WBC 6.6 RBC 3.19 L Hgb 10.0 L Hct 29.3 L D MCV 92.0 MCH 31.4 MCHC 34.1 RDW 14.5 Plt Count 201 MPV 7.8 Absolute Neuts (auto) Neutrophils % Lymphocytes % Monocytes % Eosinophils % Basophils % Nucleated RBC % Sodium Potassium 3.9 Chloride Carbon Dioxide Anion Gap BUN Creatinine Est GFR (CKD-EPI)AfAm Est GFR (CKD-EPI)NonAf Random Glucose Calcium Phosphorus 3.7 Magnesium 2.3 Total Bilirubin AST ALT Alkaline Phosphatase Troponin I Total Protein Albumin Blood Type B POSITIVE Antibody Screen Negative Crossmatch See Detail 12/11/18 12/11/18 12/11/18 02:39 06:50 06:50 WBC 5.2 RBC 2.74 L Hgb 8.8 L Hct 24.8 L D MCV 90.5 MCH 32.1 MCHC 35.5 RDW 14.2 Plt Count 192 MPV 7.6 Absolute Neuts (auto) 3.4 Neutrophils % 64.2 Lymphocytes % 21.9 D Monocytes % 9.5 Eosinophils % 3.9 D Basophils % 0.5 Nucleated RBC % 0 Sodium 145 Potassium 3.6 Chloride 111 H Carbon Dioxide 28 Anion Gap 6 L BUN 2.6 L* Creatinine 0.7 Est GFR (CKD-EPI)AfAm 109.27 Est GFR (CKD-EPI)NonAf 94.28 Random Glucose 123 H Calcium 7.9 L Phosphorus 2.6 Magnesium 2.0 Total Bilirubin 0.5 AST 14 L ALT 17 Alkaline Phosphatase 47 Troponin I 0.02 Total Protein 4.9 L Albumin 2.5 L Blood Type Antibody Screen Crossmatch Problem List - Problems (1) Rectal bleed Code(s): K62.5 - HEMORRHAGE OF ANUS AND RECTUM Assessment/Plan -Rapid AFib -LGIB in a patient with antiplatelet and NOAC therapy. (Last dose of Xeralto and ASA -->12/06 at 8pm) -HTN -HL -CAD w/ stents on ASA -A-Fib on Xarelto PLAN: -For Colonoscopy today -Digoxin for rate control per Cardiology -Continue to hold all AC -NPO -Large bore IV X2 -PPI -Trend CBC -Normal Transfusion Thresholds -Cardiac Telemetry monitoring Dr Alaniz
--- NOTE | 2018-12-11 11:50 | ECHO ---
Version: 1 Name: SCOTTY MARQUEZ Exam: Adult Echocardiogram Study Date: 12/11/2018, 7:41 AM Age: 73 Years MMode/2D Measurements & Calculations IVSd: 1.01 cm LVIDs: 3.0 cm LVIDd: 4.0 cm LVPWd: 0.89 cm LAV (MOD-bp): 47.9 ml LVOT diam: 1.96 cm Ao root diam: 2.7 cm LA dimension: 3.3 cm Doppler Measurements & Calculations MV E max nolberto: 99.4 cm/sec Med E/e': 9.8 MV A max nolberto: 83.9 cm/sec Med Peak E' Nolberto: 10.1 cm/sec MV E/A: 1.18 Lat E/e': 7.7 Lat Peak E' Nolberto: 12.8 cm/sec MR max P.3 mmHg Ao max P.1 mmHg Ao V2 max: 123.5 cm/sec TR max nolberto: 256.2 cm/sec TR max P.3 mmHg Procedure The study was technically difficult with many images being suboptimal in quality. The patient was in atrial fibrillation with rapid ventricular response during the exam with a heart rate exceeding 100 bpm. Left Ventricle The left ventricular size, thickness and function are normal. Right Ventricle The right ventricle is normal in size and function. Atria Normal left and right atrial size and function. Right atrial size is normal. Mitral Valve The mitral valve is normal in structure and function. There is mild mitral regurgitation. Tricuspid Valve The tricuspid valve is normal in structure and function. There is moderate tricuspid regurgitation. Aortic Valve The aortic valve is normal in structure and function. No hemodynamically significant valvular aortic stenosis. Pulmonic Valve The pulmonic valve is normal in structure and function. Mild pulmonic valvular regurgitation. Great Vessels The aortic root is normal size. Pericardium/Pleura There is no pericardial effusion. Summary Statements The study was technically difficult with many images being suboptimal in quality. The patient was in atrial fibrillation with rapid ventricular response during the exam with a heart rate exceeding 100 bpm. The left ventricular size, thickness and function are normal The right ventricle is normal in size and function. There is mild mitral regurgitation. Edgar Britt 12/11/2018, 10:49 AM Ordering Physician: Geoffrey Wick Performed By: Chana Murillo
--- NOTE | 2018-12-11 12:08 | EKG ---
Test Reason : Blood Pressure : / mmHG Vent. Rate : 109 BPM Atrial Rate : 111 BPM P-R Int : 000 ms QRS Dur : 088 ms QT Int : 332 ms P-R-T Axes : 000 046 019 degrees QTc Int : 447 ms ATRIAL FIBRILLATION WITH RAPID VENTRICULAR RESPONSE SEPTAL INFARCT , AGE UNDETERMINED ABNORMAL ECG Confirmed by Jerry Bronson MD ([id number]) on 12/11/2018 12:08:10 PM Referred By: Confirmed By:Jerry Bronson MD
--- NOTE | 2018-12-11 12:08 | EKG ---
Test Reason : Blood Pressure : / mmHG Vent. Rate : 134 BPM Atrial Rate : 170 BPM P-R Int : 000 ms QRS Dur : 086 ms QT Int : 326 ms P-R-T Axes : 000 049 000 degrees QTc Int : 486 ms ATRIAL FIBRILLATION WITH RAPID VENTRICULAR RESPONSE SEPTAL INFARCT (CITED ON OR BEFORE 11-DEC-2018) ABNORMAL ECG WHEN COMPARED WITH ECG OF 11-DEC-2018 03:19, NO SIGNIFICANT CHANGE WAS FOUND Confirmed by Jerry Bronson MD ([id number]) on 12/11/2018 12:08:03 PM Referred By: Confirmed By:Jerry Bronson MD
--- NOTE | 2018-12-11 12:24 | PN ---
Physical Exam: SUBJECTIVE: Patient seen and examined. Last night, pt noted palpitations and SOB w rapid a fib v RVR, variable Hr 150-160, EKG showed a-fib with RVR and FLAVIA in aVR with STD in V3-V6. Denies chest pain. Admitted to [place] 21 years ago but states that "this does not feel like it". BP 110/80's, given 5 lopressor IV w HR between 100-120BP 91/54. Given 500 NS bolus. 3am repeat BP 109/54 HR 160s, repeat EKG A fib with RVR without FLAVIA or STD, given 5 loperssor IVP, 25mg lopressor tartrate PO, another 500 NS bolus. Trop negative This morning, pt feels intermittent palpitations, denies CP/SOB/AB pain. BM this morning, non bloody. Plan colonoscopy today. OBJECTIVE: Vital Signs Period Temp Pulse Resp BP Sys/Manley Pulse Ox Last 24 Hr 97.9 F-98.6 F 63-165 17-24 82-150/45-90 98-100 GENERAL: The patient is awake, alert, and fully oriented, in no acute distress. LUNGS: Breath sounds equal, clear to auscultation bilaterally, no wheezes, no crackles, no accessory muscle use. HEART: Regular rate and rhythm, S1, S2 without murmur, rub or gallop. ABDOMEN: Soft, nontender, nondistended, normoactive bowel sounds, no guarding, no rebound, no hepatosplenomegaly, no masses. EXTREMITIES: R arm mild swelling/warmth NEUROLOGICAL: AOx3, Normal speech, gait not observed. PSYCH: Normal mood, normal affect. Laboratory Results - last 24 hr 12/07/18 12/10/18 12/10/18 11:45 16:45 22:40 WBC 6.6 RBC 3.19 L Hgb 10.0 L Hct 29.3 L D MCV 92.0 MCH 31.4 MCHC 34.1 RDW 14.5 Plt Count 201 MPV 7.8 Absolute Neuts (auto) Neutrophils % Lymphocytes % Monocytes % Eosinophils % Basophils % Nucleated RBC % Sodium Potassium 3.9 Chloride Carbon Dioxide Anion Gap BUN Creatinine Est GFR (CKD-EPI)AfAm Est GFR (CKD-EPI)NonAf Random Glucose Calcium Phosphorus 3.7 Magnesium 2.3 Total Bilirubin AST ALT Alkaline Phosphatase Troponin I Total Protein Albumin Blood Type B POSITIVE Antibody Screen Negative Crossmatch See Detail 12/11/18 12/11/18 12/11/18 02:39 06:50 06:50 WBC 5.2 RBC 2.74 L Hgb 8.8 L Hct 24.8 L D MCV 90.5 MCH 32.1 MCHC 35.5 RDW 14.2 Plt Count 192 MPV 7.6 Absolute Neuts (auto) 3.4 Neutrophils % 64.2 Lymphocytes % 21.9 D Monocytes % 9.5 Eosinophils % 3.9 D Basophils % 0.5 Nucleated RBC % 0 Sodium 145 Potassium 3.6 Chloride 111 H Carbon Dioxide 28 Anion Gap 6 L BUN 2.6 L* Creatinine 0.7 Est GFR (CKD-EPI)AfAm 109.27 Est GFR (CKD-EPI)NonAf 94.28 Random Glucose 123 H Calcium 7.9 L Phosphorus 2.6 Magnesium 2.0 Total Bilirubin 0.5 AST 14 L ALT 17 Alkaline Phosphatase 47 Troponin I 0.02 Total Protein 4.9 L Albumin 2.5 L Blood Type Antibody Screen Crossmatch Active Medications Generic Name Dose Route Start Last Admin Trade Name Freq PRN Reason Stop Dose Admin Chlorhexidine Gluconate 1 applic 12/07/18 22:00 12/10/18 21:56 Hibiclens For Decolonization - TP 1 applic HS SARAY Administration Dextrose/Lactated Ringer's 1,000 mls @ 100 mls/hr 12/08/18 13:45 12/11/18 10: 30 D5-Lr - IV 100 mls/hr ASDIR SARAY Administration Metoprolol Tartrate 12.5 mg 12/11/18 22:00 Lopressor - PO BID SARAY Pantoprazole Sodium 40 mg 12/07/18 22:00 12/11/18 10:31 Protonix Iv IVPB 40 mg BID SARAY Administration Sodium Chloride 500 ml 12/11/18 03:31 Normal Saline - IV ONCE PRN MAP<65mm Hg OR SBP <90 ASSESSMENT/PLAN: Moses Voss is a 73yM w PMHx CAD s/p CABG and stents on ASA, HTN, HLD, A fib on xarelto presenting w rectal bleeding. Cardiac - anemia d/t bleeding - anemia - Hgb stable 8.6 to 8.8, trending - echo 12/11 shows normal LV/RV size and function, mild mitral regurgitation, suboptimal study w pt in a fib w RVR - digoxin 0.25x1 per cardio, restarted 12.5 metoprolol BID in 12/11 pm - holding statin, ACEI meds d/t low BP - holding ASA, xarelto d/t bleeding - 500 NS PRN if MAP persistently <65 Pulm - breathing RA, no active issues Neuro - AOx3, no active issues GI - rectal bleeding likely lower GI source, no active bleeding - endoscopy 12/10 normal - plan colonoscopy today - NPO for procedure today - GI ppx - D5LR @100mL/hr, 1000mL - I/O ID - afebrile, no active issues Skin - R arm mild swelling - applied cool compress, duplex US 12/10 did not show DVT FEN - Fluids: D5LR @100mL/hr, 1000mL - Electrolyte abnormalities: hyperCl - Nutrition: NPO for procedure today PPX DVT - holding xarelto d/t bleeding GI - protonix Dispo - ICU Miguel RODRIGUEZ Resident PGY1 Discussed w attending Dr Alaniz Visit type - Emergency Visit Emergency Visit: Yes ED Registration Date: 12/07/18 Care time: The patient presented to the Emergency Department on the above date and was hospitalized for further evaluation of their emergent condition. - New Patient This patient is new to me today: No - Critical Care Critical Care patient: Yes Total Critical Care Time (in minutes): 36 Critical Care Statement: The care of this patient involved high complexity decision making to prevent further life threatening deterioration of the patient 's condition and/or to evaluate & treat vital organ system(s) failure or risk of failure. ATTENDING PHYSICIAN STATEMENT I saw and evaluated the patient. I reviewed the resident's note and discussed the case with the resident. I agree with the resident's findings and plan as documented. SUBJECTIVE: OBJECTIVE: ASSESSMENT AND PLAN:
--- NOTE | 2018-12-11 13:55 | PN ---
Physical Exam: SUBJECTIVE: Patient seen and examined in the morning. Patient became tachycardic overnight with HR reaching 150-160. Was given 2 IV pushes of 5 mg lopressor and 25 mg lopressor PO. Denies any chest pain, shortness of breath, abdominal pain. Completed bowel prep overnight and has been NPO overnight. OBJECTIVE: Vital Signs Period Temp Pulse Resp BP Sys/Manley Pulse Ox Last 24 Hr 97.9 F-98.6 F 63-165 17-24 82-150/45-90 98-100 GENERAL: The patient is awake, alert, and fully oriented, in no acute distress. HEAD: Normal with no signs of trauma. EYES: Extraocular movements intact, sclera anicteric, conjunctiva clear. No ptosis. Wearing glasses. NECK: Trachea midline, full range of motion, supple. LUNGS: Breath sounds equal, clear to auscultation bilaterally, no wheezes, no crackles, no accessory muscle use. HEART: S1 and S2 present, no murmurs, rubs, or gallops heard ABDOMEN: Soft, nontender, nondistended, normoactive bowel sounds, no guarding EXTREMITIES: 2+ pulses, warm, well-perfused, no edema. Right upper extremity is slightly warmer than left. NEUROLOGICAL: Cranial nerves II through XII grossly intact. Normal speech. SKIN: Warm, dry, normal turgor, no rashes or lesions noted Laboratory Results - last 24 hr 12/07/18 12/10/18 12/10/18 11:45 16:45 22:40 WBC 6.6 RBC 3.19 L Hgb 10.0 L Hct 29.3 L D MCV 92.0 MCH 31.4 MCHC 34.1 RDW 14.5 Plt Count 201 MPV 7.8 Absolute Neuts (auto) Neutrophils % Lymphocytes % Monocytes % Eosinophils % Basophils % Nucleated RBC % Sodium Potassium 3.9 Chloride Carbon Dioxide Anion Gap BUN Creatinine Est GFR (CKD-EPI)AfAm Est GFR (CKD-EPI)NonAf Random Glucose Calcium Phosphorus 3.7 Magnesium 2.3 Total Bilirubin AST ALT Alkaline Phosphatase Troponin I Total Protein Albumin Blood Type B POSITIVE Antibody Screen Negative Crossmatch See Detail 12/11/18 12/11/18 12/11/18 02:39 06:50 06:50 WBC 5.2 RBC 2.74 L Hgb 8.8 L Hct 24.8 L D MCV 90.5 MCH 32.1 MCHC 35.5 RDW 14.2 Plt Count 192 MPV 7.6 Absolute Neuts (auto) 3.4 Neutrophils % 64.2 Lymphocytes % 21.9 D Monocytes % 9.5 Eosinophils % 3.9 D Basophils % 0.5 Nucleated RBC % 0 Sodium 145 Potassium 3.6 Chloride 111 H Carbon Dioxide 28 Anion Gap 6 L BUN 2.6 L* Creatinine 0.7 Est GFR (CKD-EPI)AfAm 109.27 Est GFR (CKD-EPI)NonAf 94.28 Random Glucose 123 H Calcium 7.9 L Phosphorus 2.6 Magnesium 2.0 Total Bilirubin 0.5 AST 14 L ALT 17 Alkaline Phosphatase 47 Troponin I 0.02 Total Protein 4.9 L Albumin 2.5 L Blood Type Antibody Screen Crossmatch Active Medications Generic Name Dose Route Start Last Admin Trade Name Freq PRN Reason Stop Dose Admin Chlorhexidine Gluconate 1 applic 12/07/18 22:00 12/10/18 21:56 Hibiclens For Decolonization - TP 1 applic HS SARAY Administration Dextrose/Lactated Ringer's 1,000 mls @ 100 mls/hr 12/08/18 13:45 12/11/18 10: 30 D5-Lr - IV 100 mls/hr ASDIR SARAY Administration Metoprolol Tartrate 12.5 mg 12/11/18 22:00 Lopressor - PO BID SARAY Pantoprazole Sodium 40 mg 12/07/18 22:00 12/11/18 10:31 Protonix Iv IVPB 40 mg BID SARAY Administration Sodium Chloride 500 ml 12/11/18 03:31 Normal Saline - IV ONCE PRN MAP<65mm Hg OR SBP <90 ASSESSMENT/PLAN: 73 M with PMH of Afib, CAD, HTN, HLD who presented with painless rectal bleeding. 1) Painless rectal bleeding -Likely due to lower GI bleed. -EGD done yesterday. Colonoscopy scheduled today. 2) Anemia -Hgb today is 8.8, will transfuse if 8 or lower. -Likely due to bleeding from prior, however no signs of bleeding currently. 3) Phlebitis of right arm -U/S of arm showed no DVT. -Continue resting, ice, and elevating the arm. 4) HTN -Episodes of hypotension, will hold off on antihypertensive medications. 5) CAD -Holding home medications, monitoring in ICU. F: LR@ 100 ml/hr E: monitor CMP N: NPO DVT: SCD Dispo: Admitted to ICU Visit type - Emergency Visit Emergency Visit: Yes ED Registration Date: 12/07/18 Care time: The patient presented to the Emergency Department on the above date and was hospitalized for further evaluation of their emergent condition. - New Patient This patient is new to me today: No - Critical Care Critical Care patient: Yes Total Critical Care Time (in minutes): 35 Critical Care Statement: The care of this patient involved high complexity decision making to prevent further life threatening deterioration of the patient 's condition and/or to evaluate & treat vital organ system(s) failure or risk of failure. ATTENDING PHYSICIAN STATEMENT I saw and evaluated the patient. I reviewed the resident's note and discussed the case with the resident. I agree with the resident's findings and plan as documented. SUBJECTIVE: OBJECTIVE: ASSESSMENT AND PLAN:
--- NOTE | 2018-12-11 14:36 | PN ---
Teaching Attending Note Name of Resident: Malena Zurita ATTENDING PHYSICIAN STATEMENT I saw and evaluated the patient. I reviewed the resident's note and discussed the case with the resident. I agree with the resident's findings and plan as documented. SUBJECTIVE: No fever or chills. No HESTER , no Abd pain , received the prep and had BMs all night OBJECTIVE: NAD, pale, awake. MMM CV: RRR. Lungs: CTAB Abd: soft, NT, ND, NL BS. Ext: No edema or erythema. ASSESSMENT AND PLAN: 73 y/o man with h/o CAD, s/p CABG, HTN, HLP, A fib on xarelto, who presented with rectal bleed 1- Painless Rectal bleed: likely lower GI bleed from diverticular source. - EGD reportedly neg - colo today - repeat Hb this evening -will probably resume clears after colo -cont IVF - Monitor electrolytes 2-Afib with RVR : worsened last night . BP did not tolerate IV BB . - Cont PO BB at a low dose and with holding parameters. - given 1 dose of IV dig. can finish load 3- H/o HTN: in past 48 hr. No sx. monitor closely . HOld HTn meds dispo : if no active bleeding on colo, can be monitored on tele floor
[2018-12-11 14:56] LABS: HEMATOCRIT 24.4 % (35.4-49); HEMOGLOBIN 8.5 GM/dL (11.7-16.9); MCH 31.8 pg (25.7-33.7); MCHC 34.8 g/dl (32.0-35.9); MEAN CELL VOLUME 91.2 fl (80-96); MEAN PLT VOLUME 7.6 fl (7.5-11.1); PLATELET COUNT 199 K/MM3 (134-434); RBC 2.67 M/mm3 (4.00-5.60); RDW 14.1 % (11.9-15.9); WHITE BLOOD COUNT 5.2 K/mm3 (4.0-10.0)
[2018-12-11] MEDS ORDERED: ETOMIDATE 20 MG/10 ML AMPUL IVPUSH ONE (15:49)
--- NOTE | 2018-12-11 16:24 | PN ---
Progress Note (short form) - Note Progress Note: Colonoscopy complete. Report left in procedural section of physical chart and will be scanned into [employer] Problem List - Problems (1) Rectal bleed Code(s): K62.5 - HEMORRHAGE OF ANUS AND RECTUM
[2018-12-11] MEDS ORDERED: SODIUM CHLORIDE 250 ML IV STA ×2 (19:20→20:51)
[2018-12-11] MEDS: CHLORHEXIDINE GLUCONATE 4% CLEANSER FOR DECOLONIZATION TP SCH (21:12)
[2018-12-11] MEDS ORDERED: METOPROLOL TARTRATE 25 MG TABLET (FP) PO SCH ×2 (22:00)
[2018-12-12] MEDS ORDERED: SODIUM CHLORIDE 250 ML IV STA (00:58)
[2018-12-12] MEDS ORDERED: SODIUM CHLORIDE 500 ML IV STA (02:44)
[2018-12-12 04:41] LABS: BASO % 0.9 % (0-2.0); EOS % 6.2 % (0-4.5); HEMATOCRIT 23.5 % (35.4-49); HEMOGLOBIN 7.8 GM/dL (11.7-16.9); LYMPH % 25.9 % (8-40); MCH 31.1 pg (25.7-33.7); MCHC 33.4 g/dl (32.0-35.9); MEAN CELL VOLUME 93.2 fl (80-96); MEAN PLT VOLUME 8.7 fl (7.5-11.1); MONO % 10.2 % (3.8-10.2); NEUT % 56.8 % (42.8-82.8); PLATELET COUNT 152 K/MM3 (134-434); RBC 2.52 M/mm3 (4.00-5.60); RDW 14.3 % (11.9-15.9); WHITE BLOOD COUNT 4.6 K/mm3 (4.0-10.0)
[2018-12-12 05:10] LABS: ALBUMIN 2.2 g/dl (3.4-5.0); BILIRUBIN,TOTAL 0.3 mg/dL (0.2-1); BLOOD UREA NITROGEN 4.6 mg/dL (7-18); CALCIUM 7.7 mg/dL (8.5-10.1); CREATININE 0.7 mg/dL (0.55-1.3); MAGNESIUM 1.7 mg/dL (1.8-2.4); PHOSPHOROUS 2.6 mg/dL (2.5-4.9); POTASSIUM 3.6 mmol/L (3.5-5.1); TOT PROT 4.4 g/dl (6.4-8.2)
[2018-12-12] MEDS ORDERED: MAGNESIUM SULF 50% (8.12 MEQ/2 ML-1 GM VIAL) IVPB ONE (05:15)
--- NOTE | 2018-12-12 09:51 | PN ---
Progress Note (short form) - Note Progress Note: s: no chest pain, palps, dizziness, dyspnea Current Medications Chlorhexidine Gluconate (Hibiclens For Decolonization -) 1 applic TP HS [facility], [facility]1983 Last Admin: 12/11/18 21:12 Dose: 1 applic Dextrose/Lactated Ringer's (D5-Lr -) 1,000 mls @ 100 mls/hr IV ASDIR [facility]1983 Last Admin: 12/11/18 18:17 Dose: Not Given Metoprolol Tartrate (Lopressor -) 12.5 mg PO BID [facility] Last Admin: 12/11/18 21:12 Dose: Not Given Sodium Chloride (Normal Saline -) 500 ml IV ONCE PRN PRN Reason: MAP<65mm Hg OR SBP <90 Vital Signs Period Temp Pulse Resp BP Sys/Manley Pulse Ox Last 24 Hr 97.8 F-98.2 F 60-124 13-26 82-117/43-63 98-99 Constitutional: Yes: Calm Cardiovascular: Yes: Regular Rate and Rhythm Respiratory: Yes: CTA Bilaterally Gastrointestinal: Yes: Soft Edema: No Neurological: Yes: Alert, Oriented no jaundice, diaphoresis not agitated - ....Imaging EKG: Image Reviewed Assessment/Plan tele: afib episodes of RVR 140s-180s -> sinus ecg: afib with rvr, no ischemic changes, nl qtc a/p: 73 m hx pafib, cad s/p remote mi/pci 20 yrs ago, hld, htn, here with rectal bleed. GIB: -GI following. s/p EGD/[place] -holding asa, ac pafib: - episodes of RVR, toprol restarted, continue - PRN IV toprol for tachycardia - now in sinus after IV digoxin -holding xarelto for now 2/2 gib -cont tele cad, remote mi/pci: -no signs acs -hold home statin, bb, [place]-i during gib, npo for now -can likely dc asa and cont ac only after acute issues resolved hld: -resume statin when taking po htn: -holding home bp meds 2/2 low bp in setting of gib
[2018-12-12] MEDS ORDERED: ATORVASTATIN CA 20 MG TABLET (FP) PO SCH (10:00)
[2018-12-12] MEDS ORDERED: CARVEDILOL 3.125 MG TABLET (FP) PO SCH ×2 (10:00→22:00)
[2018-12-12] MEDS ORDERED: LISINOPRIL 10 MG TABLET (FP) PO SCH (10:00)
--- NOTE | 2018-12-12 10:18 | PN ---
Physical Exam: SUBJECTIVE: Patient seen and examined in the morning. Patient was slightly hypotensive overnight but was given bolus of fluids. No other acute events. Patient has no complaints of chest pain, SOB, abdominal pain, nausea/vomiting, diarrhea, dysuria. Pain in the arm still persists. OBJECTIVE: Vital Signs Period Temp Pulse Resp BP Sys/Manley Pulse Ox Last 24 Hr 97.8 F-98.2 F 60-124 13-26 88-117/43-63 98-99 GENERAL: The patient is awake, alert, and fully oriented, in no acute distress. HEAD: Normal with no signs of trauma. EYES: Extraocular movements intact, sclera anicteric, conjunctiva clear. No ptosis. Wearing glasses. NECK: Trachea midline, full range of motion, supple. LUNGS: Breath sounds equal, clear to auscultation bilaterally, no wheezes, no crackles, no accessory muscle use. HEART: S1 and S2 present, no murmurs, rubs, or gallops heard ABDOMEN: Soft, nontender, nondistended, normoactive bowel sounds, no guarding EXTREMITIES: 2+ pulses, warm, well-perfused, no edema. Right upper extremity is slightly warmer than left. NEUROLOGICAL: Cranial nerves II through XII grossly intact. Normal speech. SKIN: Warm, dry, normal turgor, no rashes or lesions noted Laboratory Results - last 24 hr 12/10/18 12/11/18 12/12/18 06:10 14:45 04:20 WBC 5.2 4.6 RBC 2.67 L 2.52 L Hgb 8.5 L 7.8 L Hct 24.4 L 23.5 L MCV 91.2 93.2 MCH 31.8 31.1 MCHC 34.8 33.4 RDW 14.1 14.3 Plt Count 199 152 D MPV 7.6 8.7 D Absolute Neuts (auto) 2.6 Neutrophils % 56.8 Lymphocytes % 25.9 Monocytes % 10.2 Eosinophils % 6.2 H Basophils % 0.9 Nucleated RBC % 0 Sodium Potassium Chloride Carbon Dioxide Anion Gap BUN Creatinine Est GFR (CKD-EPI)AfAm Est GFR (CKD-EPI)NonAf POC Glucometer Random Glucose Calcium Phosphorus Magnesium Total Bilirubin AST ALT Alkaline Phosphatase Total Protein Albumin Crossmatch See Detail 12/12/18 12/12/18 04:20 06:02 WBC RBC Hgb Hct MCV MCH MCHC RDW Plt Count MPV Absolute Neuts (auto) Neutrophils % Lymphocytes % Monocytes % Eosinophils % Basophils % Nucleated RBC % Sodium 145 Potassium 3.6 Chloride 112 H Carbon Dioxide 28 Anion Gap 4 L BUN 4.6 L Creatinine 0.7 Est GFR (CKD-EPI)AfAm 109.27 Est GFR (CKD-EPI)NonAf 94.28 POC Glucometer 127 Random Glucose 94 Calcium 7.7 L Phosphorus 2.6 Magnesium 1.7 L Total Bilirubin 0.3 AST 13 L ALT 14 Alkaline Phosphatase 42 L Total Protein 4.4 L Albumin 2.2 L Crossmatch Active Medications Generic Name Dose Route Start Last Admin Trade Name Freq PRN Reason Stop Dose Admin Atorvastatin Calcium 20 mg 12/12/18 10:00 Lipitor - PO DAILY SARAY Carvedilol 3.125 mg 12/12/18 10:00 Coreg - PO DAILY [facility] Chlorhexidine Gluconate 1 applic 12/07/18 22:00 12/11/18 21:12 Hibiclens For Decolonization - TP 1 applic HS SARAY Administration Dextrose/Lactated Ringer's 1,000 mls @ 100 mls/hr 12/08/18 13:45 12/11/18 18: 17 D5-Lr - IV Not Given ASDIR [facility] Lisinopril 10 mg 12/12/18 10:00 Prinivil PO DAILY [facility] Sodium Chloride 500 ml 12/11/18 03:31 Normal Saline - IV ONCE PRN MAP<65mm Hg OR SBP <90 ASSESSMENT/PLAN: 73 M with PMH of Afib, CAD, HTN, HLD who presented with painless rectal bleeding. 1) Painless rectal bleeding -EGD normal. -Colonoscopy showed severe diverticulosis in sigmoid colon and mild diverticulosis in right colon. Medium internal hemorrhoids present. -Still holding anticoagulation 2) Anemia -Hgb in morning was 7.8, Repeat in afternoon was 9.2 -Likely due to bleeding from prior, however no overt signs of bleeding currently. 3) Phlebitis of right arm -U/S of arm showed no DVT. -Continue resting, ice, and elevating the arm. 4) HTN -Episodes of hypotension -Lisinopril if systolic BP >130. -Restarting Carvedilol 3.125 mg PO BID 5) CAD -Atorvastatin 20 mg PO Daily. F: LR@ 100 ml/hr E: monitor CMP N: Sodium/Fat/Cholesterol restricted diet. DVT: SCD Dispo: Transfer to Telemetry. Visit type - Emergency Visit Emergency Visit: Yes ED Registration Date: 12/07/18 Care time: The patient presented to the Emergency Department on the above date and was hospitalized for further evaluation of their emergent condition. - New Patient This patient is new to me today: No - Critical Care Critical Care patient: No - Discharge Referral Referred to [facility] Med [facility] No ATTENDING PHYSICIAN STATEMENT I saw and evaluated the patient. I reviewed the resident's note and discussed the case with the resident. I agree with the resident's findings and plan as documented. SUBJECTIVE: OBJECTIVE: ASSESSMENT AND PLAN:
--- NOTE | 2018-12-12 11:01 | PN ---
Physical Exam: SUBJECTIVE: Patient seen and examined. Hypotensive overnight. given total 1 L NS overnight. Hgb 7.8 from 8.5. Patient offers no complaints. No signs of bleeding. OBJECTIVE: Vital Signs Period Temp Pulse Resp BP Sys/Manley Pulse Ox Last 24 Hr 97.8 F-98.2 F 60-124 13-26 88-130/43-67 98-99 GENERAL: The patient is awake, alert, and fully oriented, in no acute distress. EYES: extraocular movements intact, sclera anicteric ENT: oropharynx clear without exudates, moist mucous membranes. NECK: supple. LUNGS: lungs cta b/l HEART: regular rate and rhythm, no murmurs appreciated ABDOMEN: Soft, nontender, nondistended EXTREMITIES: 2+ pulses NEUROLOGICAL: Normal speech, gait not observed. Laboratory Results - last 24 hr 12/10/18 12/11/18 12/12/18 06:10 14:45 04:20 WBC 5.2 4.6 RBC 2.67 L 2.52 L Hgb 8.5 L 7.8 L Hct 24.4 L 23.5 L MCV 91.2 93.2 MCH 31.8 31.1 MCHC 34.8 33.4 RDW 14.1 14.3 Plt Count 199 152 D MPV 7.6 8.7 D Absolute Neuts (auto) 2.6 Neutrophils % 56.8 Lymphocytes % 25.9 Monocytes % 10.2 Eosinophils % 6.2 H Basophils % 0.9 Nucleated RBC % 0 Sodium Potassium Chloride Carbon Dioxide Anion Gap BUN Creatinine Est GFR (CKD-EPI)AfAm Est GFR (CKD-EPI)NonAf POC Glucometer Random Glucose Calcium Phosphorus Magnesium Total Bilirubin AST ALT Alkaline Phosphatase Total Protein Albumin Crossmatch See Detail 12/12/18 12/12/18 04:20 06:02 WBC RBC Hgb Hct MCV MCH MCHC RDW Plt Count MPV Absolute Neuts (auto) Neutrophils % Lymphocytes % Monocytes % Eosinophils % Basophils % Nucleated RBC % Sodium 145 Potassium 3.6 Chloride 112 H Carbon Dioxide 28 Anion Gap 4 L BUN 4.6 L Creatinine 0.7 Est GFR (CKD-EPI)AfAm 109.27 Est GFR (CKD-EPI)NonAf 94.28 POC Glucometer 127 Random Glucose 94 Calcium 7.7 L Phosphorus 2.6 Magnesium 1.7 L Total Bilirubin 0.3 AST 13 L ALT 14 Alkaline Phosphatase 42 L Total Protein 4.4 L Albumin 2.2 L Crossmatch Active Medications Generic Name Dose Route Start Last Admin Trade Name Freq PRN Reason Stop Dose Admin Atorvastatin Calcium 20 mg 12/12/18 10:00 Lipitor - PO DAILY [facility] Carvedilol 3.125 mg 12/12/18 10:00 Coreg - PO DAILY [facility] Chlorhexidine Gluconate 1 applic 12/07/18 22:00 12/11/18 21:12 Hibiclens For Decolonization - TP 1 applic HS SARAY Administration Dextrose/Lactated Ringer's 1,000 mls @ 100 mls/hr 12/08/18 13:45 12/11/18 18: 17 D5-Lr - IV Not Given ASDIR SARAY Lisinopril 10 mg 12/12/18 10:00 Prinivil PO DAILY SARAY Sodium Chloride 500 ml 12/11/18 03:31 Normal Saline - IV ONCE PRN MAP<65mm Hg OR SBP <90 ASSESSMENT/PLAN: Moses Voss is a 73yM w PMHx CAD s/p CABG and stents on ASA, HTN, HLD, A fib on xarelto presenting w rectal bleeding. #Cardiac - anemia - Hgb stable 7.8 from 8.5. Likely dilutional component from overnight fluid resuscitation +/ GI bleed. - echo 12/11 shows normal LV/RV size and function, mild mitral regurgitation, suboptimal study w pt in a fib w RVR - digoxin 0.25x1 yesterday, coreg held. can resume low dose coreg once BP stable. - holding statin, ACEI meds due to low BP - holding ASA, xarelto due to bleeding. #Pulm - saturating well on RA, no active issues #Neuro - AOx3, no active issues #GI - -Painless rectal bleeding- resolved. -Endoscopy/Colonoscopy with no source of bleeding, although hemoglobin still dropping. -GI ppx # - D5LR @100mL/hr - I/O #ID - afebrile, no active issues #Skin - R arm mild swelling - improving -applied cool compress, duplex US 12/10 did not show DVT #FEN - Fluids: D5LR @100mL/hr - Low fat diet Visit type - Emergency Visit Emergency Visit: Yes ED Registration Date: 12/07/18 Care time: The patient presented to the Emergency Department on the above date and was hospitalized for further evaluation of their emergent condition. - New Patient This patient is new to me today: Yes Date on this admission: 12/12/18 - Critical Care Critical Care patient: Yes Total Critical Care Time (in minutes): 45 Critical Care Statement: The care of this patient involved high complexity decision making to prevent further life threatening deterioration of the patient 's condition and/or to evaluate & treat vital organ system(s) failure or risk of failure. ATTENDING PHYSICIAN STATEMENT I saw and evaluated the patient. I reviewed the resident's note and discussed the case with the resident. I agree with the resident's findings and plan as documented. SUBJECTIVE: OBJECTIVE: ASSESSMENT AND PLAN:
--- NOTE | 2018-12-12 11:16 | PN ---
Teaching Attending Note Name of Resident: Antonia Lindsey ATTENDING PHYSICIAN STATEMENT I saw and evaluated the patient. I reviewed the resident's note and discussed the case with the resident. I agree with the resident's findings and plan as documented. SUBJECTIVE: Pt seen and examined in the ICU. In sinus rhythm this AM. No bowel movements overnight. Denies shortness of breath or chest pain. OBJECTIVE: Vital Signs Period Temp Pulse Resp BP Sys/Manley Pulse Ox Last 24 Hr 97.8 F-98.2 F 60-84 13-26 88-130/43-67 98-99 Intake & Output 12/09/18 12/10/18 12/11/18 12/12/18 23:59 23:59 23:59 23:59 Intake Total 2400 2750 6940 600 Output Total 3869 629 9279 1250 Balance 1300 1950 5890 -650 Weight 64.864 kg 64.864 kg 64.864 kg 65.091 kg Gen: NAD at rest Heart: RRR Lung: decreased breath sounds at the bases Abd: soft, nontender Ext: no edema CBC, BMP 12/12/18 04:20 12/12/18 04:20 Active Medications Atorvastatin Calcium (Lipitor -) 20 mg PO DAILY [facility] Last Admin: 12/12/18 10:48 Dose: 20 mg Carvedilol (Coreg -) 3.125 mg PO DAILY [facility] Chlorhexidine Gluconate (Hibiclens For Decolonization -) 1 applic TP HS [facility] Last Admin: 12/11/18 21:12 Dose: 1 applic Dextrose/Lactated Ringer's (D5-Lr -) 1,000 mls @ 100 mls/hr IV ASDIR [facility] Last Admin: 12/11/18 18:17 Dose: Not Given Lisinopril (Prinivil) 10 mg PO DAILY [facility] Last Admin: 12/12/18 10:48 Dose: 10 mg Sodium Chloride (Normal Saline -) 500 ml IV ONCE PRN PRN Reason: MAP<65mm Hg OR SBP <90 ASSESSMENT AND PLAN: GI Bleed Acute Blood Loss Anemia Paroxysmal Atrial Fibrillation CAD HTN Hyperlipidemia - monitor H/H - rate control - resume anticoagulation when ok with GI - PO as tolerted - DVT prophylaxis - can monitor on telemetry
[2018-12-12] MEDS ORDERED: CARVEDILOL 3.125 MG TABLET (FP) PO ONE (12:30)
[2018-12-12 13:53] LABS: BASO % 0.5 % (0-2.0); EOS % 4.5 % (0-4.5); HEMATOCRIT 27.8 % (35.4-49); HEMOGLOBIN 9.2 GM/dL (11.7-16.9); LYMPH % 22.1 % (8-40); MCH 30.8 pg (25.7-33.7); MCHC 33.1 g/dl (32.0-35.9); MEAN CELL VOLUME 93.2 fl (80-96); MEAN PLT VOLUME 7.6 fl (7.5-11.1); MONO % 9.6 % (3.8-10.2); NEUT % 63.3 % (42.8-82.8); PLATELET COUNT 234 K/MM3 (134-434); RBC 2.98 M/mm3 (4.00-5.60); RDW 14.4 % (11.9-15.9); WHITE BLOOD COUNT 4.9 K/mm3 (4.0-10.0)
[2018-12-12 14:38] VITALS: PULSE 83; TEMP 98.6
--- NOTE | 2018-12-12 15:56 | PN.GI ---
GI Progress Note Subjective: Pt seen/examined at bedside, feeling well, had small brown bm this am, tolerating diet. Anxious to go home. - Objective Vital Signs: Vital Signs Temperature 98.6 F 12/12/18 14:00 Pulse Rate 83 12/12/18 14:00 Respiratory Rate 23 H 12/12/18 14:00 Blood Pressure 132/72 12/12/18 14:00 O2 Sat by Pulse Oximetry (%) 99 12/12/18 07:51 Constitutional: Well Nourished, No Distress, Calm Cardiovascular: Yes: WNL, Regular Rate and Rhythm Respiratory: Yes: WNL, Regular, CTA Bilaterally ...Palpate: Yes: Other (Abd soft, nt, nd) Labs: CBC, BMP 12/12/18 13:26 12/12/18 04:20 INR, PTT INR 1.10 (0.83-1.09) H 12/10/18 06:10 Fibrinogen 284.0 mg/dL (238-498) 12/07/18 22:25 Problem List - Problems (1) Rectal bleed Assessment/Plan: 73yo male h/o paroxysmal A fib, CAD s/p remote PCI on xarelto and aspirin with hematochezia. EGD normal. Colonoscopy performed yesterday revealing severe sigmoid diverticulosis, mild in right colon, no blood seen. Hb stable. No further bleeding suspect resolved diverticular bleed. -Continue to closely monitor Hb and for evidence of bleeding -Diet as tolerated -As previously noted, risks/benefits of resuming anticoagulation will need to be carefully weighed as this will place pt at increased risk of bleeding including from diverticulosis. -Further recommendations per cardiology -If further overt bleeding or drop in Hb please notify GI. Code(s): K62.5 - HEMORRHAGE OF ANUS AND RECTUM
[2018-12-12 16:49] VITALS: BP 128/60
[2018-12-12] MEDS: DEXTROSE 5%-LACTATED RINGERS 1,000 ML IV SCH (17:03)
--- NOTE | 2018-12-12 18:10 | PN ---
Progress Note (short form) - Note Progress Note: Patient signed out AMA at 5:59 PM. He wanted to go home, and felt that his stay in the hospital was causing him greater stress. Patient initially thought he could take a one night break from the hospital. However I spoke with patient and explained to him the risks of recurrent bleed, A-fib, stroke, and possible if he leaves the hospital, and that he cannot take a break and come back to the same room. He understood the risks and still determined to leave.
--- NOTE | 2018-12-12 18:59 | PN ---
Teaching Attending Note Name of Resident: Adan Porter ATTENDING PHYSICIAN STATEMENT I saw and evaluated the patient. I reviewed the resident's note and discussed the case with the resident. I agree with the resident's findings and plan as documented. SUBJECTIVE: Patient is comfortable with no acute distress. Feeling better with no acute distress. OBJECTIVE: Vital Signs Temperature 98.6 F 12/12/18 14:00 Pulse Rate 83 12/12/18 16:00 Respiratory Rate 21 H 12/12/18 16:00 Blood Pressure 128/60 12/12/18 16:00 O2 Sat by Pulse Oximetry (%) 100 12/12/18 17:04 GENERAL: The patient is awake, alert, and fully oriented, in no acute distress. HEAD: Normal with no signs of trauma. EYES: PERRL, extraocular movements intact, sclera anicteric, conjunctiva clear. ENT: Ears normal, oropharynx clear without exudates, moist mucous membranes. NECK: Trachea midline, full range of motion, supple. LUNGS: Breath sounds equal, clear to auscultation bilaterally, no wheezes, no crackles, no accessory muscle use. HEART: Regular rate and rhythm, S1, S2 without murmur, rub or gallop. ABDOMEN: Soft, NT,ND, normoactive bowel sounds, no guarding, no rebound, no hepatosplenomegaly, no masses. EXTREMITIES: 2+ pulses, warm, well-perfused, no edema. NEUROLOGICAL: Cranial nerves II through XII grossly intact. Normal speech, gait not observed. PSYCH: Normal mood, normal affect. SKIN: Warm, dry, normal turgor, no rashes or lesions noted CBCD WBC 4.9 K/mm3 (4.0-10.0) 12/12/18 13:26 RBC 2.98 M/mm3 (4.00-5.60) L 12/12/18 13:26 Hgb 9.2 GM/dL (11.7-16.9) L 12/12/18 13:26 Hct 27.8 % (35.4-49) L D 12/12/18 13:26 MCV 93.2 fl (80-96) 12/12/18 13:26 MCHC 33.1 g/dl (32.0-35.9) 12/12/18 13: RDW 14.4 % (11.9-15.9) 12/12/18 13:26 Plt Count 234 K/MM3 (134-434) D 12/12/18 13:26 MPV 7.6 fl (7.5-11.1) D 12/12/18 13:26 CMP Sodium 145 mmol/L (136-145) 12/12/18 04:20 Potassium 3.6 mmol/L (3.5-5.1) 12/12/18 04:20 Chloride 112 mmol/L (98-107) H 12/12/18 04:20 Carbon Dioxide 28 mmol/L (21-32) 12/12/18 04:20 Anion Gap 4 MMOL/L (8-16) L 12/12/18 04:20 BUN 4.6 mg/dL (7-18) L 12/12/18 04:20 Creatinine 0.7 mg/dL (0.55-1.3) 12/12/18 04:20 Random Glucose 94 mg/dL (74-106) 12/12/18 04:20 Calcium 7.7 mg/dL (8.5-10.1) L 12/12/18 04:20 Total Bilirubin 0.3 mg/dL (0.2-1) 12/12/18 04:20 AST 13 U/L (15-37) L 12/12/18 04:20 ALT 14 U/L (13-61) 12/12/18 04:20 Alkaline Phosphatase 42 U/L (45-117) L 12/12/18 04:20 Total Protein 4.4 g/dl (6.4-8.2) L 12/12/18 04:20 Albumin 2.2 g/dl (3.4-5.0) L 12/12/18 04:20 CARDIAC ENZYMES Creatine Kinase 50 U/L (26-308) 12/07/18 11:15 Troponin I 0.02 ng/ml (0.00-0.05) 12/11/18 02:39 Home Medications Medication Instructions Recorded Atorvastatin Ca [Lipitor] 20 mg PO DAILY 12/07/18 RX: Aspirin 81 mg PO DAILY 12/07/18 RX: Carvedilol 3.125 mg PO BID 12/07/18 RX: Lisinopril 10 mg PO DAILY 12/07/18 Ranitidine HCl [Zantac] 150 mg PO DAILY 12/07/18 Rivaroxaban [Xarelto] 15 mg PO DAILY 12/07/18 ASSESSMENT AND PLAN: Patient is a 73yo male man with h/o CAD, s/p CABG, HTN, HLP, A fib on xarelto, who presented with rectal bleed #Painless Rectal bleed: due to diverticular bleed. s/p EGD and colonoscopy with findings: severe diverticulosis in the sigmoid colon. mild diverticulosis in the right colon. # Afib is controlled the rate now, s/p IV digoxin x 1 dose # HTN controlled patient signed AMA. risks were explained . rebleed, afib with RVR, stroke, coma , .
--- NOTE | 2018-12-12 19:42 | DS ---
Physical Exam: SUBJECTIVE: Patient seen and examined in the morning. Patient was slightly hypotensive overnight but was given bolus of fluids. No other acute events. Patient has no complaints of chest pain, SOB, abdominal pain, nausea/vomiting, diarrhea, dysuria. Pain in the arm still persists. OBJECTIVE: Vital Signs Period Temp Pulse Resp BP Sys/Manley Pulse Ox Last 24 Hr 97.8 F-98.6 F 63-84 13-26 89-132/43-72 98-100 PHYSICAL EXAM GENERAL: The patient is awake, alert, and fully oriented, in no acute distress. HEAD: Normal with no signs of trauma. EYES: Extraocular movements intact, sclera anicteric, conjunctiva clear. No ptosis. Wearing glasses. NECK: Trachea midline, full range of motion, supple. LUNGS: Breath sounds equal, clear to auscultation bilaterally, no wheezes, no crackles, no accessory muscle use. HEART: S1 and S2 present, no murmurs, rubs, or gallops heard ABDOMEN: Soft, nontender, nondistended, normoactive bowel sounds, no guarding EXTREMITIES: 2+ pulses, warm, well-perfused, no edema. Right upper extremity is slightly warmer than left. NEUROLOGICAL: Cranial nerves II through XII grossly intact. Normal speech. SKIN: Warm, dry, normal turgor, no rashes or lesions noted LABS Laboratory Results - last 24 hr CBC, BMP 12/12/18 13:26 12/12/18 04:20 HOSPITAL COURSE: Date of Admission:12/07/18 Date of Discharge: 12/12/18 73 M with PMH of Afib, CAD, HTN, HLD who presented with painless rectal bleeding. Patient reported to the hospital on 12/07/18 after having an episode of painless rectal bleeding. He continued to have multiple episodes of bleeding during his first night in the hospital. Patient's home medications were held and decision was made for endoscopy and colonoscopy after anticoagulation. EGD and colonoscopy did not show any signs of bleeding. Patient's blood pressure was managed with fluid boluses, and his atrial fibrillation was managed with metoprolol initially and ultimately digoxin. Patient also developed phlebitis on the 4th day of admission, and DVT was ruled out. Imaging: CTA Abdomen/Pelvis: no active extravasation of contrast media at the time of this procedure as discussed above. There is no evidence of bowel obstruction. Diverticulosis with no evidence to suggest acute diverticulitis Chest X-Ray: Lungs showed no acute pathology Upper Extremity U/S: No signs of DVT and has soft tissue edema. Minutes to complete discharge: 35 Discharge Summary Problems reviewed: Yes Reason For Visit: LOWER GI BLEED Condition: Stable - Instructions Diet, Activity, Other Instructions: There are risks of recurrent bleed, A-fib, stroke, and possible for leaving the hospital without completeing treatment. It is important to not start medication you are not on in the hospital without seeking medical advice and he should follow up with a medical doctor within 7 days, if not sooner. Referrals: ON STAFF,NOT [Primary Care Provider] - Disposition: AGAINST MEDICAL ADVICE - Home Medications Comprehensive Discharge Medication List: Ambulatory Orders Aspirin 81 mg PO DAILY 12/07/18 Atorvastatin Ca [Lipitor] 20 mg PO DAILY 12/07/18 Carvedilol 3.125 mg PO BID 12/07/18 Lisinopril 10 mg PO DAILY 12/07/18 Ranitidine HCl [Zantac] 150 mg PO DAILY 12/07/18 Rivaroxaban [Xarelto] 15 mg PO DAILY 12/07/18 This patient is new to me today: No Emergency Visit: Yes ED Registration Date: 12/07/18 Care time: The patient presented to the Emergency Department on the above date and was hospitalized for further evaluation of their emergent condition. Critical Care patient: Yes Total Critical Care Time (in minutes): 35 Critical Care Statement: The care of this patient involved high complexity decision making to prevent further life threatening deterioration of the patient 's condition and/or to evaluate & treat vital organ system(s) failure or risk of failure. - Discharge Referral Referred to [facility] Med [facility] No ATTENDING PHYSICIAN STATEMENT I saw and evaluated the patient. I reviewed the resident's note and discussed the case with the resident. I agree with the resident's findings and plan as documented. SUBJECTIVE: OBJECTIVE: ASSESSMENT AND PLAN:
== END 2018-12-12 18:20 | disposition left against medical advice (07) | DRG 378 ==
LOC: JER 10:38 → JERBED 13:58 → JICU 20:13
PROVIDERS: ADMIT Internal Medicine; ATTEND Internal Medicine
PROC: 30233N1 Transfusion of Nonautologous Red Blood Cells into Peripheral Vein, Percutaneous Approach (ICD-10-PCS; 2018-12-07)
PROC: 0DJD8ZZ Inspection of Lower Intestinal Tract, Via Natural or Artificial Opening Endoscopic (ICD-10-PCS; principal; 2018-12-11 12:00)
DX: K57.31 Diverticulosis of large intestine without perforation or abscess with bleeding (principal); D62 Acute posthemorrhagic anemia; K62.5 Hemorrhage of anus and rectum; I10 Essential (primary) hypertension; I25.10 Atherosclerotic heart disease of native coronary artery without angina pectoris; E78.5 Hyperlipidemia, unspecified; Z79.01 Long term (current) use of anticoagulants; I95.9 Hypotension, unspecified; E86.1 Hypovolemia; E83.42 Hypomagnesemia; E83.39 Other disorders of phosphorus metabolism; Z98.61 Coronary angioplasty status; I48.0 Paroxysmal atrial fibrillation; E87.6 Hypokalemia; E87.8 Other disorders of electrolyte and fluid balance, not elsewhere classified; K64.8 Other hemorrhoids; I80.8 Phlebitis and thrombophlebitis of other sites; I34.0 Nonrheumatic mitral (valve) insufficiency
CPT/HCPCS: 36415; 36430; 36511; 71045-TC-FY; 74174-TC; 80048; 80053; 82150; 82550; 82962; 83605; 83690; 83735; 84100; 84132; 84484; 85025; 85027; 85384; 85610; 85730; 86850; 86900; 86901; 86922; 87040; 87086; 93005; 93010; 93306-TC; 93971; 99285-25; J7030; P9034; P9038; P9058